=== PATIENT | male | born 1965 | race Caucasian/White ===

== ENCOUNTER 2019-08-05 07:11 | Emergency (ER) | payer OTHER, SELFPAY ==
[2019-08-05 07:12] VITALS: BP 148/90; PULSE 70; RESP 17; TEMP 37.1; O2SAT 97; BMI 51.8
--- NOTE | 2019-08-05 07:21 | CT_ITS ---
STUDY: CT ABDOMEN AND PELVIS WITHOUT CONTRAST REASON FOR EXAM: Male, 54 years old. Abdominal pain RADIATION DOSAGE (If Supplied By Facility): CTDIvol = ( 24.18 ) mGy, DLP = ( 1461.94 ) mGycm TECHNIQUE: Transaxial images were obtained from the dome of the diaphragm to the symphysis pubis without oral contrast, and without intravenous contrast. Sagittal and coronal images were reconstructed. Individualized dose optimization techniques were used for this CT. COMPARISON: None. FINDINGS: The visualized lung bases are unremarkable. The visualized portions of the heart are within normal limits. There is decreased attenuation of the liver consistent with steatosis. Normal gallbladder and extrahepatic biliary system. Normal spleen. Normal pancreas. Normal bilateral adrenal glands. 3 mm obstructing stone at the mid right ureter with mild ureteral dilatation and hydronephrosis. Normal left kidney. There is a small hiatal hernia. Normal small intestine. Normal colon. The appendix is visualized and appears normal. Normal abdominal aorta. Normal inferior vena cava. Normal retroperitoneum. Normal urinary bladder. Normal abdominal wall. Normal osseous structures. CT/Abdomen/Pelvis without Cont IMPRESSION: 1. 3 mm obstructing stone in the mid right ureter with mild ureteral dilatation and hydronephrosis. 2. Fatty infiltration of the liver. Electronically Signed: Carlos Dailey MD at 8:25 EDT Tel , Service support ,
--- NOTE | 2019-08-05 07:34 | ED.DCSUM_ITS ---
- ER Visit Summary Date of Service: 08/05/19 Chief Complaint: Right flank pain History of Present Illness: The patient is a [address] Jackman. Patient reports that he has abrupt onset of right flank pain at 4:00 this morning. Is a sharp pain that is 10 out of 10 at worst and 8-10 currently. Is worsened by nothing and relieved by nothing. He said nausea without vomiting. His last bowel movements today. No melena hematochezia. No dysuria, frequency, or hematuria. Physical Examination: Vitals: Stable. Afebrile. General: Well-nourished and well-developed. Head: Normocephalic atraumatic. Neck: Supple, no lymphadenopathy. No JVD. Nontender. Cardiovascular: Regular rate and rhythm. No murmurs. Respiratory: No respiratory distress. Clear to auscultation bilaterally. Abdominal: Soft, nontender, nondistended, normal bowel sounds. No guarding, rebound, or peritoneal signs. Back: Nontender. Extremities: 1+ pitting edema of the lower extremes bilaterally. Chronic venous stasis changes. No erythema, warmth, or induration to suggest infection. Skin: Normal color, no rash. Neurologic: Alert and oriented ?3. Cranial nerves II through XII are intact. Normal strength and sensation. Psych: Normal affect. Test Results: CBC is marked for white count of 14.6 with 81 segmented neutrophils and 9 lymphocytes. Chem-7 shows a glucose of 131. UA shows 25-50 red blood cells. No evidence of infection. Clinical Impression(s) from Imaging Studies Abdomen/Pelvis CT 08/05/19 07:21 IMPRESSION: 1. 3 mm obstructing stone in the mid right ureter with mild ureteral dilatation and hydronephrosis. 2. Fatty infiltration of the liver. Electronically Signed: Carlos Dailey MD at 8:25 EDT Tel , Service support , Emergency Department Course and Treatment: Patient had an IV placed. He was given Toradol, morphine, and Zofran IV. He is resting comfortably. Treatment Plan: Patient will be discharged with Percocet, Zofran, naproxen. Instructed follow-up Dr. Keita in 1 week if not improving. Return to the emergency department for any worsening symptoms. Disposition: To home in improved and stable condition. Impression: 1. Right ureterolithiasis. This note was generated with [employer] dictation software. It may contain incorrect words, spelling, and punctuation that were not noted in review of the chart prior to signing ED Disposition - Plan for ED Patient: Instructions: KIDNEY STONE w/ Colic Prescriptions: Naproxen [Naprosyn] 500 mg PO BID #14 tablet Oxycodone HCl/Acetaminophen [Percocet 5/325] 1 tablet PO Q6H PRN PRN 3 Days #12 tablet PRN Reason: Pain Ondansetron [Zofran Odt] 4 mg PO Q8H PRN PRN #10 tablet PRN Reason: Nausea Referrals: Sergio Keita MD [STAFF PHYSICIAN] - 1 Week if not improving
[2019-08-05] MEDS: Ondansetron 4 MG/2 ML Vial IV (07:43)
[2019-08-05] MEDS: 0.9% Normal Saline 1,000 ML 250 ML IV (07:43)
[2019-08-05] MEDS: Morphine 4 MG/ML Syringe IV (07:43)
[2019-08-05] MEDS: Ketorolac 30 MG/ML Syringe IV (07:43)
[2019-08-05 08:29] LABS: Absolute Lymphocyte Count 1.37 X10^3/uL (0.83-4.51); Absolute Neutrophil Count 11.9 X10^3/uL (2.0-7.7); Basophil# 0.07 X10^3/uL; Basophil% 0.5 % (0-1); Eosinophils% 1.4 % (0-5); Hematocrit 45.9 % (40-54); Hemoglobin 15.1 g/dL (13.0-16.5); Lymphocyte # 1.37 X10^3/ul (4.0); Lymphocyte % 9.4 % (19-41); Mean Corp Hgb Conc 32.9 g/dL (32-36); Mean Corpuscular Hgb 28.9 pg (27.0-32.0); Mean Corpuscular Volume 87.8 fL (80-94); Mean Platelet Vol. 10.2 fl (6.2-12.0); Monocyte# 1.02 X10^3/uL; NRBC Flagged by Analyzer 0 % (0-5); Neutrophil # 11.92 X10^3/uL (2.7-7.7); Neutrophil % 81.3 % (47-70); Platelet Count 232 K/mm3 (150-450); RBC Distribution Width CV 12.6 % (11.6-14.6); RBC Distribution Width SD 40.7 fl (35.1-43.9); Red Blood Count 5.23 M/mm3 (4.6-6.2); White Blood Count 14.6 K/mm3 (4.4-11.0)
[2019-08-05 08:38] LABS: Anion Gap 6 (5-15); BUN 17 mg/dL (7-18); BUN/Creat Ratio 15.6 RATIO (10-20); Calcium,Total 8.9 mg/dL (8.5-10.1); Chloride 106 mmol/L (98-107); Creatinine, Serum 1.09 mg/dL (0.70-1.30); EST Glomerular Filtration Rate 75 mL/min (>60); Est Glom Filt Rate - Afr Amer 91 mL/min (>60); Estimated Creatinine Clearance 85.04 ml/min; Glucose 131 mg/dL (74-106); Potassium 4.5 mmol/L (3.5-5.1); Sodium Level 140 mmol/L (136-145)
[2019-08-05 09:03] LABS: Bacteria 0 SEEN /hpf (None Seen); Mucous, Urine 0 SEEN /hpf (<or=2+); White Blood Cells 0 SEEN /hpf (0-5)
[2019-08-05 09:06] LABS: Color, Urine Yellow (Yellow); Glucose, Dipstick Normal (Normal); Ketone-Dipstick Negative (Negative); Leukocyte Esterase-Dipstick Negative /ul (Negative); Nitrite-Dipstick Negative (Negative); Occult Blood-Urine 150 /ul (Negative); Protein-Dipstick 15 mg/dl (Negative); Specific Gravity, Urine 1.025 (1.002-1.030); Urine Bilirubin Dipstick Negative (Negative); Urine Clarity Sl. Cloudy (Clear); Urine Urobilinogen Normal (Normal)
[2019-08-05 09:12] LABS: Red Blood Cells-Urine 25-50 SEEN /hpf (0-5); Squamous Epithelial Cells - UA 0-5 SEEN /hpf (0-5)
[2019-08-05 09:54] VITALS: BP 140/78; PULSE 82; RESP 18; O2SAT 98
== END 2019-08-05 10:11 | disposition home or self-care (01) ==
LOC: ED 08:10
PROVIDERS: Emergency Provider Emergency Medicine; Family Provider Student in an Organized Health Care Education/Training Program; PCP Student in an Organized Health Care Education/Training Program
DX: N13.2 Hydronephrosis with renal and ureteral calculous obstruction (principal); Z87.442 Personal history of urinary calculi
CPT/HCPCS: 74176; 80048; 81001; 85025; 96361; 96374; 96375; 99284; J7030; A4216; J2405

== ENCOUNTER 2020-04-07 20:57 | Emergency (ER) | payer OTHER, SELFPAY ==
[2020-04-07 20:57] VITALS: BP 157/91; PULSE 96; RESP 18; TEMP 36.2; O2SAT 97; BMI 56.6
--- NOTE | 2020-04-07 21:16 | ED.DCSUM_ITS ---
- ER Visit Summary Date of Service: 04/07/20 Chief Complaint: Nosebleed History of Present Illness: The patient is a 54 M history of depression and occasional nosebleeds. On no blood thinners. States he recently started a new job he is had sore knees he has been using Motrin. Denies any nasal trauma. Ab out an hour ago started having blood from both sides of his nose. He has had a prior nasal septal surgery. He denies any bruising, hematuria or melena. Physical Examination: Middle-aged male no acute distress vital signs stable afebrile initial blood pressure 137/91. HEENT exam mild bleeding from bilateral nares. No significant clots. Posterior pharynx mild blood. No trouble breathing or swallowing. Lungs clear to auscultation bilaterally. Heart regular rhythm no murmur. M soft nontender. He is moving all 4 extremities. He is equal symmetrical trace edema both lower extremities. Neurologically is awake and alert with no focal motor deficits. Test Results: None Emergency Department Course and Treatment: Patient with acute epistaxis. Afrin nasal spray soaked cotton balls be placed in both sides of his nose. Then reassess for possible packing. Jewel exam patient is doing well at 9:45 PM. Bleeding on the right is resolved. Left is very slow. I strongly encouraged the patient to let me place bilateral anterior nasal packs. He has home CPAP with nasal pillows and said there is no way he can do that. Said he cannot sleep without it he has to use it. Said it will not work with packing in. He does not have a oral CPAP mouthpiece at home. He does understand that there is a much higher risk of him to have continued bleeding or recurrent bleeding and that he would have to return and he is willing to take that risk. I did place Dawit-Synephrine soaked cotton balls in both sides of his nose prior to being discharged. Patient refusing any type of packing. Prior to being discharged she started bleeding again. Slowed it again down with soaked cotton balls of Afrin. I then cauterized both sides was again slowed but did not stop the bleeding. I was able to talk the patient into bilateral anterior nasal tampon packs. Currently the bleeding is well controlled. There is no blood from posterior pharynx. He is going to follow-up with Dr. Indra Rodriguez on Friday to have the packing was removed. He may need cauterization more formally in the office. He knows to return if worse. He is going to attempt to not use his CPAP device this weekend. Treatment Plan: Patient will follow-up with Dr. Indra Rodriguez of ENT. Turn if worse. Disposition: Discharge Impression: Acute epistaxis (nose bleed) Bilateral anterior nasal packs by ER This note was generated with [employer] dictation software. It may contain incorrect words, spelling, and punctuation that were not noted in review of the chart prior to signing ED Disposition - Plan for ED Patient: Disposition: Home or Assisted Living Instructions: Nosebleed Prescriptions: Amoxicillin 500 mg PO TID #9 tab Prescription Printed Referrals: Indra Rodriguez MD [STAFF PHYSICIAN] - As soon as possible Additional Instructions: Direct pressure to the soft portion at the end of your nose to help stop the bleeding. Afrin or Dawit-Synephrine nasal spray soaked cotton balls inside your nose to help decrease or stop the bleeding. During the day use antibiotic ointment to help moisten your nose in case the home CPAP is causing nasal dryness and increasing the risk of bleeding. Hold your Motrin the next day. Follow-up with Dr. Indra Rodriguez this coming week. Return if worse. Leave the packing in both sides your nose and follow-up with Dr. Miller on Friday. If you pull the packing and use your CPAP it is almost surely can start bleeding again at home. While the packing is you need to be on antibiotic I will put her on amoxicillin 3 times a day for 3 days.
[2020-04-07] MEDS: Oxymetazoline 0.05% 1 SPRAY SPRAY.BTL 2 SPRAY NASAL (21:26)
--- NOTE | 2020-04-07 21:52 | ED.DEP ---
ED Disposition - Plan for ED Patient: Disposition: Home or Assisted Living Instructions: Nosebleed Prescriptions: Amoxicillin 500 mg PO TID #9 tab Prescription Printed Referrals: Indra Rodriguez MD [STAFF PHYSICIAN] - As soon as possible Additional Instructions: Direct pressure to the soft portion at the end of your nose to help stop the bleeding. Afrin or Dawit-Synephrine nasal spray soaked cotton balls inside your nose to help decrease or stop the bleeding. During the day use antibiotic ointment to help moisten your nose in case the home CPAP is causing nasal dryness and increasing the risk of bleeding. Hold your Motrin the next day. Follow-up with Dr. Indra Rodriguez this coming week. Return if worse. Leave the packing in both sides your nose and follow-up with Dr. Miller on Friday. If you pull the packing and use your CPAP it is almost surely can start bleeding again at home. While the packing is you need to be on antibiotic I will put her on amoxicillin 3 times a day for 3 days.
[2020-04-07] MEDS: Silver Nitrate (BKC) 4 EACH TOPICAL (22:05)
== END 2020-04-07 22:35 | disposition home or self-care (01) ==
PROVIDERS: Emergency Provider Emergency Medicine; PCP Student in an Organized Health Care Education/Training Program
DX: R04.0 Epistaxis (principal)
CPT/HCPCS: 30901; 99282

== ENCOUNTER 2020-04-10 16:18 | Emergency (ER) | payer OTHER, SELFPAY ==
[2020-04-10 16:18] VITALS: BP 125/89; PULSE 103; RESP 18; TEMP 36.8; O2SAT 96; BMI 55.2
--- NOTE | 2020-04-10 16:30 | EKG12_ITS ---
Test Reason : SOB Blood Pressure : / mmHG Vent. Rate : 096 BPM Atrial Rate : 096 BPM P-R Int : 144 ms QRS Dur : 088 ms QT Int : 330 ms P-R-T Axes : 050 -12 022 degrees QTc Int : 416 ms Normal sinus rhythm Minimal voltage criteria for LVH, may be normal variant Borderline ECG Confirmed by BARBRA PATINO, TIM ([id number]), editor publications BISI ROMAN ([id number]) on 04/11/2020 11:19:41 AM Referred By: NISHA Confirmed By:TIM BELLE MD
--- NOTE | 2020-04-10 16:32 | ED.DCSUM_ITS ---
History of Present Illness Chief Complaint: Shortness of Breath Informant: Patient Onset: Today Context: Gradual Onset Timing: Waxes and wanes Current Severity: Mild Maximum Severity: Moderate Narrative: She presents with shortness of breath, worse with exertion that he noted significantly today. Patient was seen in the ER over the weekend with a nosebleed. Packings were placed Friday night he removed these himself on Friday. He has an appointment to see ENT on Friday. Patient states he went back to work today but became very winded with exertion. He denied having chest pain. He would sit to rest, however as soon as he would get to work again would become short of breath. He denies cough or wheezing. - Past Medical History (1) Obstructive sleep apnea Status: Chronic (2) History of DVT of lower extremity Status: Chronic Past Medical History - Allergies and Home Meds Allergies/Adverse Reactions: Allergies cephalexin [From Keflex] Allergy (Verified 04/10/20 16:18) Itching Primary Care Physician: Artur Jackman DO [Primary Care Provider] - Prior records reviewed: Yes Lives: Spouse/ Significant Other Smoking Status: Never smoker Review of Systems General: Denies: Chills, Fever Eyes: Denies: Visual changes - bilaterally ENT: Denies: Bilateral ear pain Cardiovascular: Denies: Chest pain Respiratory: Reports: Dyspnea. Denies: Cough, Sputum Gastrointestinal: Denies: Abdominal pain, Nausea, Vomiting, Diarrhea Musculoskeletal: Reports: Swelling - Chronic venous changes to the lower extremities. Skin: Denies: Rash Neurological: Denies: Headache Hematologic: Denies: Easy bruising, Easy bleeding Allergy: Denies: Uticaria Physical Exam Vital Signs/Narrative: Vital Signs Temp Pulse Resp BP Pulse Ox 04/10/20 16:18 98.3 F 103 H 18 125/89 H 96 Inital Vital Signs reviewed: Yes General: Well nourished, Well developed Head: Normocephalic ENT: Moist mucous membranes Neck: Supple Cardiovascular: Regular rate, Regular rhythm Respiratory: No distress, CTA bilaterally Abdomen: Soft, Nontender Extremities: Edema - 3+ edema with vascular changes to the lower extremities, symmetric. No open wounds. Neurological: Alert, Oriented x3 Psychological: Normal affect Diagnostic/Tx/Re-eval Impressions Chest X-Ray 04/10/20 16:50 IMPRESSION: No acute pulmonary process Electronically Signed: Sohail Kimble MD at 17:14 EDT , Service support , Chest CTA 04/10/20 17:46 IMPRESSION: No demonstrated PE, or thoracic aortic aneurysm or dissection. However, the contrast bolus within the pulmonary arteries is not optimal. No acute pulmonary process Degenerative bony changes Fatty liver Electronically Signed: Sohail Kimble MD at 18:34 EDT , Service support , 04/10/20 16:50 Chest PA and Lateral [RAD] Stat 04/10/20 17:46 CTA Chest W/WO Contrast [CT] Stat Laboratory Results 04/10/20 04/10/20 04/10/20 16:38 16:38 16:38 WBC 13.2 H RBC 4.83 Hgb 14.0 Hct 42.8 MCV 88.6 MCH 29.0 MCHC 32.7 RDW Std Deviation 41.3 RDW Coeff of Aura 12.8 Plt Count 256 MPV 10.3 Immature Gran % (Auto) 0.500 Neut % (Auto) 79.9 H Lymph % (Auto) 11.9 L [place] % (Auto) 6.6 Eos % (Auto) 0.6 Baso % (Auto) 0.5 Absolute Neuts (auto) 10.6 H Absolute Lymphs (auto) 1.58 Nucleated RBC % 0 D-Dimer Quant (PE/DVT) 0.78 H* Sodium 141 Potassium 4.7 Chloride 108 H Carbon Dioxide 27.0 Anion Gap 6 BUN 16 Creatinine 1.12 Estim Creat Clear Calc 82.76 Est GFR (MDRD) Af Amer 88 Est GFR (MDRD) Non-Af 72 BUN/Creatinine Ratio 14.3 Glucose 92 Calcium 9.7 Troponin I < 0.015 B-Natriuretic Peptide 04/10/20 16:38 WBC RBC Hgb Hct MCV MCH MCHC RDW Std Deviation RDW Coeff of Aura Plt Count MPV Immature Gran % (Auto) Neut % (Auto) Lymph % (Auto) [place] % (Auto) Eos % (Auto) Baso % (Auto) Absolute Neuts (auto) Absolute Lymphs (auto) Nucleated RBC % D-Dimer Quant (PE/DVT) Sodium Potassium Chloride Carbon Dioxide Anion Gap BUN Creatinine Estim Creat Clear Calc Est GFR (MDRD) Af Amer Est GFR (MDRD) Non-Af BUN/Creatinine Ratio Glucose Calcium Troponin I B-Natriuretic Peptide 14.9 - EKG Initial EKG Interpretation: Sinus Rhythm - Sinus at 96 with no acute ischemia. - Medical Decision Making Patient's vital signs been stable throughout his ED stay. Cardiac and pulmonary work-up are unremarkable. Patient will wear his compression socks and try to elevate his legs. He will follow with PCP. ED Disposition - Plan for ED Patient: Disposition: Home or Assisted Living Diagnosis: Dyspnea Instructions: ED Dyspnea Referrals: Artur Jackman DO [Primary Care Provider] - 3-5 Days if not improving
--- NOTE | 2020-04-10 16:36 | NURSING ---
NO OLD EKGS
--- NOTE | 2020-04-10 16:50 | RAD_ITS ---
STUDY: X-RAY CHEST REASON FOR EXAM: Male, 54 years old. Worsening shortness of breath TECHNIQUE: PA and lateral views of the chest. COMPARISON: None. FINDINGS: EKG leads overlie the chest The lungs are clear and expanded. There is no demonstrated pleural abnormality. Normal size heart. Normal mediastinum and brigette. Normal visualized pulmonary arteries. Normal visualized aortic arch and descending thoracic aorta. Normal visualized thoracic spine. Normal visualized ribs, clavicles, and shoulders. There is no demonstrated abnormality of the visualized soft tissue structures of the upper abdomen. RAD/Chest PA and Lateral IMPRESSION: No acute pulmonary process Electronically Signed: Sohail Kimble MD at 17:14 EDT , Service support ,
[2020-04-10 16:56] LABS: Absolute Lymphocyte Count 1.58 X10^3/uL (0.83-4.51); Absolute Neutrophil Count 10.6 X10^3/uL (2.0-7.7); Basophil# 0.06 X10^3/uL; Basophil% 0.5 % (0-1); Eosinophil# 0.08 X10^3/uL; Eosinophils% 0.6 % (0-5); Hematocrit 42.8 % (40-54); Lymphocyte # 1.58 X10^3/ul (4.0); Lymphocyte % 11.9 % (19-41); Mean Corp Hgb Conc 32.7 g/dL (32-36); Mean Corpuscular Volume 88.6 fL (80-94); Mean Platelet Vol. 10.3 fl (6.2-12.0); Monocyte# 0.87 X10^3/uL; Monocyte% 6.6 % (0-10); NRBC Flagged by Analyzer 0 % (0-5); Neutrophil # 10.59 X10^3/uL (2.7-7.7); Neutrophil % 79.9 % (47-70); Platelet Count 256 K/mm3 (150-450); RBC Distribution Width CV 12.8 % (11.6-14.6); RBC Distribution Width SD 41.3 fl (35.1-43.9); Red Blood Count 4.83 M/mm3 (4.6-6.2); White Blood Count 13.2 K/mm3 (4.4-11.0)
[2020-04-10 17:05] VITALS: O2SAT 98
[2020-04-10 17:10] LABS: D-Dimer Quantitative (DVT/PE) 0.78 FEU/ug/m (0.27-0.49)
[2020-04-10 17:33] LABS: Anion Gap 6 (5-15); BUN 16 mg/dL (7-18); BUN/Creat Ratio 14.3 RATIO (10-20); Calcium,Total 9.7 mg/dL (8.5-10.1); Chloride 108 mmol/L (98-107); Creatinine, Serum 1.12 mg/dL (0.70-1.30); EST Glomerular Filtration Rate 72 mL/min (>60); Est Glom Filt Rate - Afr Amer 88 mL/min (>60); Estimated Creatinine Clearance 82.76 ml/min; Glucose 92 mg/dL (74-106); Potassium 4.7 mmol/L (3.5-5.1); Sodium Level 141 mmol/L (136-145)
[2020-04-10 17:40] LABS: BNP,B-Type NATRIURETIC PEPTIDE 14.9 pg/mL (0-100)
--- NOTE | 2020-04-10 17:46 | CT_ITS ---
STUDY: CTA CHEST REASON FOR EXAM: Male, 54 years old. Acute shortness of breath RADIATION DOSAGE (If Supplied By Facility): CTDIvol = ( 17.33 ) mGy, DLP = ( 880.22 ) mGycm TECHNIQUE: The examination was performed with the intravenous administration of 100ML ISOVUE 370. Post-processing of the angiographic images was performed, with multiplanar reformation and 3D reconstruction. Individualized dose optimization techniques were used for this CT. COMPARISON: Previous plain films FINDINGS: There is limited enhancement of the main pulmonary artery and right and left pulmonary arteries. There is limited enhancement of the bilateral peripheral pulmonary arteries. There is no demonstrated pulmonary embolism, however, because the contrast bolus is not optimal, a subtle filling defect could be present and overlooked in the distal vessels.. Normal thoracic aorta and visualized great vessels. There is no demonstrated aortic dissection. Normal heart and pericardium. Normal mediastinum. Normal hilar regions. Normal visualized trachea and bronchi. The lungs are well expanded. Normal pulmonary parenchyma. Normal pleura. Normal chest wall structures. There are degenerative changes of thoracic spine. Limited cuts through the upper abdomen show fatty infiltration of the liver and a retrocardiac hiatal hernia CT/CTA Chest W/WO Contrast IMPRESSION: No demonstrated PE, or thoracic aortic aneurysm or dissection. However, the contrast bolus within the pulmonary arteries is not optimal. No acute pulmonary process Degenerative bony changes Fatty liver Electronically Signed: Sohail Kimble MD at 18:34 EDT , Service support ,
[2020-04-10 18:18] VITALS: BP 120/68; PULSE 78; RESP 15; O2SAT 99
[2020-04-10 19:24] VITALS: BP 135/83; PULSE 73; RESP 15; O2SAT 98
--- NOTE | 2020-04-10 19:24 | ED.RN ---
IV DC'ED, CATHETER INTACT, SMALL GAUZE DRESSING PLACED. DISCHARGE INSTRUCTIONS GIVEN TO AND REVIEWED WITH PATIENT, PATIENT DENIES QUESTIONS OR CONCERNS AND VOICES UNDERSTANDING OF DISCHARGE INSTRUCTIONS. PT AMBULATES OUT OF ROOM WITHOUT DIFFICULTY.
== END 2020-04-10 19:25 | disposition home or self-care (01) ==
PROVIDERS: Emergency Provider Emergency Medicine; PCP Student in an Organized Health Care Education/Training Program
DX: R06.00 Dyspnea, unspecified (principal); R60.0 Localized edema; G47.33 Obstructive sleep apnea (adult) (pediatric); Z86.718 Personal history of other venous thrombosis and embolism
CPT/HCPCS: 71046; 71275; 80048; 83880; 84484; 85025; 85379; 93005; 99284; Q9967; A4216

== ENCOUNTER 2021-11-10 21:51 | Observation (INO) | payer OTHER, SELFPAY ==
[2021-11-10 21:52] VITALS: BP 193/93; PULSE 87; RESP 18; TEMP 35.8; O2SAT 96; BMI 52.2
[2021-11-10 21:58] VITALS: O2SAT 96
--- NOTE | 2021-11-10 22:13 | EKG12_ITS ---
Test Reason : SOB Blood Pressure : / mmHG Vent. Rate : 086 BPM Atrial Rate : 086 BPM P-R Int : 140 ms QRS Dur : 086 ms QT Int : 338 ms P-R-T Axes : 037 -15 031 degrees QTc Int : 404 ms Normal sinus rhythm Normal ECG Confirmed by BARBRA PATINO, TIM ([id number]), advertising editor CHUCKIE BRAUN ([id number]) on 11/12/2021 10:55:42 AM Referred By: ADRIENNE Confirmed By:TIM BELLE MD
--- NOTE | 2021-11-10 22:13 | RAD_ITS ---
STUDY: X-RAY CHEST REASON FOR EXAM: Male, 56 years old. sob TECHNIQUE: Single frontal view of the chest. COMPARISON: CT chest 04/10/2020 and chest x-ray same day FINDINGS: Mild bilateral perihilar interstitial infiltrates. There is no demonstrated pleural abnormality. Normal size heart. Normal mediastinum and brigette. Normal visualized pulmonary arteries. Normal visualized aortic arch and descending thoracic aorta. Normal visualized thoracic spine. Normal visualized ribs, clavicles, and shoulders. There is no demonstrated abnormality of the visualized soft tissue structures of the upper abdomen. RAD/Chest 1 View (Portable) IMPRESSION: Mild bilateral perihilar infiltrates Electronically Signed: Indra Corona MD at 22:58 EST , Service support ,
[2021-11-10 22:34] LABS: Absolute Lymphocyte Count 2.11 X10^3/uL (0.83-4.51); Absolute Neutrophil Count 8.5 X10^3/uL (2.0-7.7); Basophil# 0.05 X10^3/uL; Basophil% 0.4 % (0-1); Eosinophil# 0.28 X10^3/uL; Eosinophils% 2.3 % (0-5); Hematocrit 43.2 % (40-54); Hemoglobin 14.4 g/dL (13.0-16.5); Lymphocyte # 2.11 X10^3/ul (0.83-4.51); Lymphocyte % 17.5 % (19-41); Mean Corp Hgb Conc 33.3 g/dL (32-36); Mean Corpuscular Hgb 28.7 pg (27.0-32.0); Mean Corpuscular Volume 86.2 fL (80-94); Mean Platelet Vol. 10.2 fl (6.2-12.0); Monocyte# 0.91 X10^3/uL; Monocyte% 7.6 % (0-10); NRBC Flagged by Analyzer 0 % (0-5); Neutrophil # 8.53 X10^3/uL (2.7-7.7); Platelet Count 231 K/mm3 (150-450); RBC Distribution Width CV 12.7 % (11.6-14.6); RBC Distribution Width SD 39.2 fl (35.1-43.9); Red Blood Count 5.01 M/mm3 (4.6-6.2)
--- NOTE | 2021-11-10 22:37 | ED.VIS.DYS ---
HPI History of Present Illness Chief Complaint: Shortness of Breath Informant: patient Narrative Narrative: Patient is a 56-year-old male presenting with shortness of breath and chest discomfort. Patient started having COVID symptoms on October 17 and had a positive test on October 29. He has been on a 10-day course of prednisone which she finished 2 days ago. He notes that since he finished that he has not been feeling as good. He has had shortness of breath especially when walking on his house. Today started having burning in the center of his chest. Denies any radiation of the pain. It is worse when he takes a deep breath. He has had a dry cough that is intermittently productive of sputum. He notes his lung just feel very irritated. He also had an episode of epistaxis tonight that self resolved. He notes he has been blowing his nose a lot. He is not on any oral anticoagulants. He does have a history of DVT in his leg after knee surgery. Patient has been using albuterol at home which does help with his cough especially. He also filled a prescription that he had for doxycycline today just in case. Patient checked his pulse ox at home which was in the 80s and his family recommend he come to the emergency room to be evaluated further. [facility] Medical History (Updated 11/11/21 @ 03:[address] Rukhsana Ochoa, ) Anxiety and depression Diabetes mellitus, type 2 History of DVT of lower extremity Morbid obesity Obstructive sleep apnea Home Medications albuterol sulfate INHALATION 11/11/21 [History Last Taken Unknown] doxycycline hyclate 11/11/21 [History Last Taken Unknown] dulaglutide [Trulicity] mg SUBCUT 11/11/21 [History Last Taken Unknown] Allergy/AdvReac Type Severity Reaction Status Date / Time cephalexin [From Keflex] Allergy Itching Verified 11/10/21 21:51 Family History Father Cancer Hx Lymphoma. Mother Diabetes Surgical History S/P arthroscopic surgery of right knee S/P tonsillectomy and adenoidectomy Social History household members: spouse Smoking Status: Never smoker alcohol intake: current alcohol intake frequency: a few times a month substance use type: does not use ROS ROS ED Constitutional Constitutional ED: Denies chills or fever(s) Eyes Eyes: Denies change in vision ENT ENT ED: Reports rhinorrhea and other Details: epistaxis Cardiovascular Cardiovascular: Reports chest pain; Denies palpitations Respiratory/Chest Respiratory/Chest: Reports cough, dyspnea, dyspnea on exertion and sputum Gastrointestinal Gastrointestinal: Denies abdominal pain, diarrhea or vomiting Genitourinary Genitourinary ED: Denies dysuria or hematuria Musculoskeletal Musculoskeletal: Denies arthralgias or myalgias Integumentary Denies rash Neurologic Neurologic: Denies headache(s) or weakness Psychiatric Psychiatric: Denies anxiety or depression EXAM Physical Exam Const Vital Signs: 11/10/21 21:52 11/10/21 22:45 11/11/21 00:00 Temperature 96.5 F L 97.5 F L Temperature Source Temporal Temporal Pulse Rate 87 Respiratory Rate 18 Respiratory Effort Short of Breath Blood Pressure 193/93 H Blood Pressure Mean 126 Pulse Ox 96 Oxygen Delivery Method Room Air Room Air Positive well nourished, well developed and obese General Appearance ED: well developed Nutritional Appearance: obese HEENT Reports moist mucous membranes Negative for trauma Eyes PERRL and EOMs intact bilaterally Neck supple, no meningeal signs and no JVD Resp normal respiratory effort Resp Narrative: Diminished breath sounds at the bases. Cardio regular rate, regular rhythm and no murmurs GI non-tender and non-distended Auscultation: normoactive bowel sounds Palpation: soft Extremity normal to inspection General Extremety ED: Negative for edema or tenderness General Extremity: Negative for edema Neuro oriented x3 Sensorium / Orientation: alert Motor Exam: Negative for general weakness Psych mental status grossly normal Skin Lesions: no lesions Rashes: no rashes MDM MDM MDM Narrative Medical decision making narrative: Patient's evaluate for increased shortness of breath. He recently had COVID-19 infection. Does have a history of provoked DVT. Patient is not hypoxic but he is tachypneic with limited activity. Initially patient is quite hypertensive but this improved significantly without any intervention. EKG is normal. D-dimer is significantly elevated so CTA is ordered. Patient is found to have bilateral PEs. There is no sign of heart strain. His troponin is normal. I did add on a BNP as well. Patient does have a mild leukocytosis but this might be from his recent steroid use. CT of the chest shows infiltrate versus pneumonitis. I did add on a procalcitonin to better differentiate and guide antibiotic treatment if needed. Patient be admitted given his bilateral PEs and his symptomatic tachypnea. He is agreeable with this plan. Spoke with the hospitalist who recommend starting the patient on oral Eliquis. First dose is given in the emergency room. Lab Data Labs: Laboratory Results - last 24 hr 11/10/21 11/10/21 11/10/21 22:20 22:20 22:20 WBC 12.0 H RBC 5.01 Hgb 14.4 Hct 43.2 MCV 86.2 MCH 28.7 MCHC 33.3 RDW Std Deviation 39.2 RDW Coeff of Aura 12.7 Plt Count 231 MPV 10.2 Immature Gran % (Auto) 1.200 H Neut % (Auto) 71.0 H Lymph % (Auto) 17.5 L [place] % (Auto) 7.6 Eos % (Auto) 2.3 Baso % (Auto) 0.4 Absolute Neuts (auto) 8.5 H Absolute Lymphs (auto) 2.11 Nucleated RBC % 0 D-Dimer Quant (PE/DVT) 3.46 H* Sodium 134 L Potassium 4.5 Chloride 101 Carbon Dioxide 29.0 Anion Gap 4 L BUN 18 Creatinine 1.03 Estim Creat Clear Calc 87.90 Est GFR (MDRD) Af Amer 96 Est GFR (MDRD) Non-Af 79 BUN/Creatinine Ratio 17.5 Glucose 346 H Calcium 9.3 Ferritin Total Bilirubin Direct Bilirubin AST ALT Alkaline Phosphatase Lactate Dehydrogenase Troponin I High Sens 7 C-React Prot Ext Range B-Natriuretic Peptide Total Protein Albumin Globulin Procalcitonin 11/11/21 11/11/21 11/11/21 00:00 00:00 00:00 WBC RBC Hgb Hct MCV MCH MCHC RDW Std Deviation RDW Coeff of Aura Plt Count MPV Immature Gran % (Auto) Neut % (Auto) Lymph % (Auto) [place] % (Auto) Eos % (Auto) Baso % (Auto) Absolute Neuts (auto) Absolute Lymphs (auto) Nucleated RBC % D-Dimer Quant (PE/DVT) Sodium Potassium Chloride Carbon Dioxide Anion Gap BUN Creatinine Estim Creat Clear Calc Est GFR (MDRD) Af Amer Est GFR (MDRD) Non-Af BUN/Creatinine Ratio Glucose Calcium Ferritin 450 H Total Bilirubin 0.50 Direct Bilirubin 0.17 AST 57 H ALT 134 H Alkaline Phosphatase 76 Lactate Dehydrogenase 305 H Troponin I High Sens C-React Prot Ext Range 28.80 H B-Natriuretic Peptide 4.5 Total Protein 7.0 Albumin 3.0 L Globulin 4.0 Procalcitonin 0.09 Radiography Chest X-Ray - ED: 1 View, Read by ED Physician, Read by Radiologist, Right Infiltrate and Left Infiltrate Diagnostic Testing: Clinical Impression(s) from Imaging Studies Chest X-Ray 11/10/21 22:13 IMPRESSION: Mild bilateral perihilar infiltrates Electronically Signed: Indra Corona MD at 22:58 EST , Service support , Chest CTA 11/10/21 22:55 IMPRESSION: Bilateral pulmonary emboli. No evidence of right ventricular strain. Right greater than left interstitial infiltrates. These are indeterminate for a covid 19 19. Electronically Signed: Indra Corona MD at 0:02 EST , Service support , Rhythm Strip Rhythm Strip: Sinus Rhythm Rate: 86 Ectopy: None EKG Initial EKG: Attestation: I personally reviewed and interpreted this EKG as follows: Interpretation: Sinus Rhythm Comments: Normal sinus rhythm at a rate of 86 Normal axis Normal intervals Normal ST segments No change prior to prior EKG on 04/10/2020 Discharge Plan Triage Chief Complaint: Shortness of Breath ED Provider: Rukhsana Ochoa Dx/Rx/DC Orders Clinical Impression: Bilateral pulmonary embolism, Pneumonia due to COVID-19 virus Primary Care Provider: Artur Jackman Disposition Disposition: Acute Care Hospital [facility] Discharge Date/Time: 11/11/21 01:21
[2021-11-10 22:45] VITALS: O2SAT 97
[2021-11-10 22:54] LABS: D-Dimer Quantitative (DVT/PE) 3.46 FEU/ug/m (0.27-0.49)
--- NOTE | 2021-11-10 22:55 | CT_ITS ---
We are attempting to reach an attending provider to discuss findings. An addendum with communication details will be sent when the communication is complete. STUDY: CTA CHEST REASON FOR EXAM: Male, 56 years old. sob, elevated dimer RADIATION DOSAGE (If Supplied By Facility): CTDIvol = ( 23.26 ) mGy, DLP = ( 1328.04 ) mGycm TECHNIQUE: The examination was performed with the intravenous administration of IV 100mL Isovue-370. Post-processing of the angiographic images was performed, with multiplanar reformation and 3D reconstruction. Individualized dose optimization techniques were used for this CT. COMPARISON: None. FINDINGS: Normal enhancement of the main pulmonary artery and right and left pulmonary arteries. Multiple occlusive and nonocclusive filling defects noted within the lobar and segmental branches bilaterally. No evidence of right ventricular strain. Normal thoracic aorta and visualized great vessels. There is no demonstrated aortic dissection. Normal heart and pericardium. Normal mediastinum. Normal hilar regions. Normal visualized trachea and bronchi. Bilateral peripheral interstitial infiltrates. Normal pulmonary parenchyma. Normal pleura. Normal chest wall structures. Gynecomastia. Normal osseous structures. Small hiatal hernia. CT/CTA Chest W/WO Contrast IMPRESSION: Bilateral pulmonary emboli. No evidence of right ventricular strain. Right greater than left interstitial infiltrates. These are indeterminate for a covid 19 19. Electronically Signed: Indra Corona MD at 0:02 EST , Service support ,
[2021-11-10 22:59] LABS: Anion Gap 4 (5-15); BUN 18 mg/dL (7-18); BUN/Creat Ratio 17.5 RATIO (10-20); Calcium,Total 9.3 mg/dL (8.5-10.1); Chloride 101 mmol/L (98-107); Creatinine, Serum 1.03 mg/dL (0.70-1.30); EST Glomerular Filtration Rate 79 mL/min (>60); Est Glom Filt Rate - Afr Amer 96 mL/min (>60); Glucose 346 mg/dL (74-106); Potassium 4.5 mmol/L (3.5-5.1); Sodium Level 134 mmol/L (136-145); Troponin-I HS 7 pg/mL (3.0-78.0)
[2021-11-11] VITALS (11 sets, daily range): BP systolic 127–178; BP diastolic 68–96; PULSE 77–95; RESP 16–18; TEMP 36.1–36.9; O2SAT 90–97; BMI 55.2
--- NOTE | 2021-11-11 00:25 | HP.PCM.HOS_ITS ---
HPI - General General Date of Admission: 11/11/21 Date of Service: 11/11/21 Chief Complaint: Dyspnea, chest discomfort. HPI Narrative The patient is a 56 y/o M w/ PMHx: Hx kidney stones, Morbid obesity, Diabetes mellitus type II, MAYO, Anxiety, Hx prior DVT, history of onset COVID symptoms 10/17/2021 with eventual testing with COVID + 10/29/21 with onset of worsening dyspnea since completion of his outpatient steroid regimen this past , reporting home desaturations into the mid-80s with incrased activity. Patient noted also concurrent midsternal chest burning sensation with worsened dyspnea with exertion, pleuritic chest discomfort. Patient does report significant ongoing rhinorrhea and has been been blowing his nose frequently with epistaxis this evening which is resolved on its own. And is unvaccinated against COVID. Work-up in the ED included T96.5, heart rate 87, BP 193/93, respiratory rate 18, 96% on room air, CBC with WC 12, hemoglobin 14.4, platelet 231 with left shift, D-dimer 3.46, BMP with sodium 134, glucose 346 otherwise not marked appearing, high-sensitivity troponin 7.0, chest x-ray with bilateral pulmonary infiltrates consistent with COVID-pneumonia, CTPA bilateral pulmonary emboli with no eviden ce of right ventricular strain with right greater than left interstitial infiltrates consistent with COVID-19 pneumonia, EKG with sinus rhythm with no acute evidence of ischemia. [facility] Medical History (Updated 11/11/21 @ 00:[address] Olga Ibanez MD) Anxiety and depression Diabetes mellitus, type 2 History of DVT of lower extremity Morbid obesity Obstructive sleep apnea Home Medications albuterol sulfate INHALATION 11/11/21 [History Last Taken Unknown] doxycycline hyclate 11/11/21 [History Last Taken Unknown] dulaglutide [Trulicity] mg SUBCUT 11/11/21 [History Last Taken Unknown] Allergy/AdvReac Type Severity Reaction Status Date / Time cephalexin [From Keflex] Allergy Itching Verified 11/10/21 21:51 Family History (Updated 11/11/21 @ 00:[address] Olga Ibanez MD) Father Cancer Hx Lymphoma. Mother Diabetes Surgical History (Updated 11/11/21 @ 00:[address] Olga Ibanez MD) S/P arthroscopic surgery of right knee S/P tonsillectomy and adenoidectomy Social History (Updated 11/11/21 @ 00:[address] Olga Ibanez MD) household members: spouse Smoking Status: Never smoker alcohol intake: current alcohol intake frequency: a few times a month substance use type: does not use ROS ROS Narrative Admission Review of Systems: CONSTITUTIONAL: No weight loss, fever, chills, +weakness or fatigue. HEENT: + Ongoing congestion, rhinorrhea, episode of epistaxis. Eyes: No visual loss, blurred vision, double vision or yellow sclerae. Ears, Nose, Throat: No hearing loss, sneezing. SKIN: No rash or itching, lesions, wounds. CARDIOVASCULAR: + Midsternal chest burning and pleuritic pain, No palpitations, edema, orthopnea, syncopal events. RESPIRATORY: + shortness of breath, cough, pleuritic chest discomfort, No marked sputum, wheezing, hemoptysis. GASTROINTESTINAL: No anorexia, nausea, vomiting, diarrhea, abdominal pain, melena, BRBPR. GENITOURINARY: No dysuria, frequency, urgency or retention. NEUROLOGICAL: No headache, dizziness, syncope, paralysis, ataxia, numbness or tingling in the extremities, focal weakness, change in bowel or bladder control, seizure. MUSCULOSKELETAL: + muscle, back pain, joint pain or stiffness. HEMATOLOGIC: No anemia, bleeding or bruising. LYMPHATICS: No enlarged nodes. No history of splenectomy. PSYCHIATRIC: + history of depression or anxiety. ENDOCRINOLOGIC: No reports of sweating, cold or heat intolerance. No polyuria or polydipsia. ALLERGIES: No history of asthma, hives, eczema or rhinitis. Vital Signs Vital Signs Vital Signs: 11/10/21 21:52 11/10/21 22:45 11/11/21 00:00 Temperature 96.5 F L 97.5 F L Temperature Source Temporal Temporal Pulse Rate 87 Respiratory Rate 18 Respiratory Effort Short of Breath Blood Pressure 193/93 H Blood Pressure Mean 126 Pulse Ox 96 Oxygen Delivery Method Room Air Room Air Weight Weight: 385 lb Body Mass Index (BMI) 52.2 Physical Exam Narrative Physical Examination: General: Awake, alert, oriented x 3 and cooperative, seated upright in the ED bed, fatigued, no evidence of any respiratory distress. Skin: Normal color, normal turgor, no icterus, no cyanosis. HEENT: AT/NC, EOMI, PERRLA, mildly dry MM, no carotid bruits or JVD noted; however, thickened neck makes examination difficult. Lungs: Diffusely diminished, greater bases, increased respiratory rate, no rales, ronchi or wheezing. Heart: Regular rate with regular rhythm; no gallop, rub audible. Abdomen: Soft, morbidly obese, no obvious TTP, unable to discern distention given habitus, distant hyperactive bowel sounds, unable to discern HSM secondary to habitus. Extremities: No cyanosis, clubbing, or edema. Neurological: Patient awake, alert, oriented as noted, cognitive function intact; pupils equally reactive to light and accommodation, cranial nerves II- XII grossly normal, moving all 4 extremities, no focal deficits, strength moderately global decrease secondary to acute presentation. Psychiatric: Affect appears fatigued, no acute evidence of depressive or anxiety feelings. Results Lab / Micro Data Result Diagrams: 11/10/21 22:20 11/10/21 22:20 Labs: Laboratory Results - last 24 hr 11/10/21 22:20: WBC 12.0 H, RBC 5.01, Hgb 14.4, Hct 43.2, MCV 86.2, MCH 28.7, MCHC 33.3, RDW Std Deviation 39.2, RDW Coeff of Aura 12.7, Plt Count 231, MPV 10.2, Immature Gran % (Auto) 1.200 H, Neut % (Auto) 71.0 H, Lymph % (Auto) 17.5 L, [place] % (Auto) 7.6, Eos % (Auto) 2.3, Baso % (Auto) 0.4, Absolute Neuts (auto) 8.5 H, Absolute Lymphs (auto) 2.11, Nucleated RBC % 0 11/10/21 22:20: D-Dimer Quant (PE/DVT) 3.46 H* 11/10/21 22:20: Sodium 134 L, Potassium 4.5, Chloride 101, Carbon Dioxide 29.0, Anion Gap 4 L, BUN 18, Creatinine 1.03, Estim Creat Clear Calc 87.90, Est GFR (MDRD) Af Amer 96, Est GFR (MDRD) Non-Af 79, BUN/Creatinine Ratio 17.5, Glucose 346 H, Calcium 9.3, Troponin I High Sens 7 Rhythm Strip Rhythm Strip: Sinus Rhythm Rate: 86 Ectopy: None Radiology Impression Chest X-Ray 11/10/21 22:13 IMPRESSION: Mild bilateral perihilar infiltrates Electronically Signed: Indra Corona MD at 22:58 EST , Service support , Chest CTA 11/10/21 22:55 IMPRESSION: Bilateral pulmonary emboli. No evidence of right ventricular strain. Right greater than left interstitial infiltrates. These are indeterminate for a covid 19 19. Electronically Signed: Indra Corona MD at 0:02 EST , Service support , Assessment & Plan Assessment/Plan (1) Bilateral pulmonary embolism: (2) Pneumonia due to COVID-19 virus: PLAN: The patient is a 56 y/o M w/ PMHx: Hx kidney stones, Morbid obesity, Diabetes mellitus type II, MAYO, Anxiety, Hx prior DVT, history of onset COVID symptoms 10/17/2021 with eventual testing with COVID + 10/29/21 with onset of worsening dyspnea since completion of his outpatient steroid regimen this past , reporting home desaturations into the mid-80s with increased activity and pleuritic chest discomfort. #1. Acute Bilateral Pneumonia secondary to Acute Viral Syndrome, COVID-19 with worsening dyspnea secondary to #2: Will admit to the PCU, maintain on COVID precautions, will maintain on oxygen with wean as tolerated to room air, PRN albuterol, HOB, IS parameters w/ pending sputum cultures and urine antigens, will obtain procalcitonin, CRP, CPK, Ferritin, LDH and BNP, continue supportive care including q 2 hour turning including prone given no prone bed availability and judicious hydration, closely monitor for worsening status for ARDS and multiorgan failure. Will need ambulation trial prior to discharge. #2. Acute Bilateral Pulmonary Embolism secondary to #1: Will maintain on cardiac telemetry. Will obtain BNP, presume from LE DVT, no evidence of strain on CTPA and trop normal x 1. Will initiate on eliquis with pending AM CM/SW consultation to review cost. Will need ambulation trial prior to discharge. #3. Hyperglycemia w/ Presumed Diabetes mellitus type II with hyperglycemia: Patient denies prior diabetic history, noted to have been on Trulicity prior which he notes was potentially for weight loss, notable blood sugar elevation likely secondary to recent steroid usage, hemoglobin A1c pending, until A1c returned we will maintain on ADA diet, accu checks w/ ISS. If A1c is notable and consistent with diabetes recommend consultation with neurology for education and teaching. #4. Morbid Obesity: Weight loss and lifestyle changes encouraged. #5. MAYO: We will continue CPAP nightly. #6. Anxiety and Depression: Not currently on any regimen, from prior records had been on bupropion and citalopram. #7. History of prior DVT: Patient with prior history of DVT following surgery on his knee, this would be considered provoked however given #2 patient is being resumed on anticoagulant therapy. #8. DVT prophylaxis: SCDs, continue anticoagulant therapy. We will need to closely monitor patient as there is documented history and previous records of epistaxis prior and this off anticoagulant therapy given new start it could be exacerbated. Charges/Coding Visit Charges OBSV E&M: 75574 Initial observation care L3
[2021-11-11 00:45] LABS: BNP,B-Type NATRIURETIC PEPTIDE 4.5 pg/mL (0-100)
[2021-11-11 00:53] LABS: Procalcitonin 0.09 ng/mL (0.00-0.09)
[2021-11-11 01:18] LABS: AST(SGOT) 57 U/L (15-37); Alanine Aminotransfer ALT/SGPT 134 U/L (16-61); Alkaline Phosphatase 76 U/L (45-117); Bilirubin, Direct 0.17 mg/dL (0.00-0.30); Ferritin 450 ng/mL (26-388); LDH 305 U/L (87-241)
[2021-11-11] MEDS: APIXABAN 5 MG TABLET 10 MG PO ×2 (01:20→09:31)
--- NOTE | 2021-11-11 01:32 | PCS.PANDOC ---
PANDEMIC DOCUMENTATION INITIATED: Date: 06/11/2021 Time: 190
[2021-11-11 06:50] LABS: Bedside Glucose 141 mg/dL (70-110)
[2021-11-11 06:55] LABS: Absolute Lymphocyte Count 1.93 X10^3/uL (0.83-4.51); Absolute Neutrophil Count 8.9 X10^3/uL (2.0-7.7); Basophil# 0.04 X10^3/uL; Basophil% 0.3 % (0-1); Eosinophils% 2.5 % (0-5); Hematocrit 42.7 % (40-54); Hemoglobin 14.1 g/dL (13.0-16.5); Lymphocyte # 1.93 X10^3/ul (0.83-4.51); Mean Corpuscular Hgb 28.5 pg (27.0-32.0); Mean Corpuscular Volume 86.3 fL (80-94); Mean Platelet Vol. 10.2 fl (6.2-12.0); Monocyte# 0.78 X10^3/uL; Monocyte% 6.4 % (0-10); NRBC Flagged by Analyzer 0 % (0-5); Neutrophil # 8.89 X10^3/uL (2.7-7.7); Neutrophil % 73.5 % (47-70); Platelet Count 221 K/mm3 (150-450); RBC Distribution Width CV 12.9 % (11.6-14.6); RBC Distribution Width SD 39.5 fl (35.1-43.9); Red Blood Count 4.95 M/mm3 (4.6-6.2); White Blood Count 12.1 K/mm3 (4.4-11.0)
[2021-11-11 08:09] LABS: ALB/GLOB Ratio 0.7 RATIO (0.9-2.4); AST(SGOT) 41 U/L (15-37); Alanine Aminotransfer ALT/SGPT 122 U/L (16-61); Albumin, Serum 2.9 g/dL (3.2-5.0); Alkaline Phosphatase 74 U/L (45-117); Anion Gap 6 (5-15); BUN 14 mg/dL (7-18); BUN/Creat Ratio 15.4 RATIO (10-20); Chloride 99 mmol/L (98-107); Creatinine, Serum 0.91 mg/dL (0.70-1.30); EST Glomerular Filtration Rate 92 mL/min (>60); Est Glom Filt Rate - Afr Amer 111 mL/min (>60); Estimated Creatinine Clearance 99.49 ml/min; Globulin 3.9 g/dL (2.2-4.2); Glucose 144 mg/dL (74-106); Potassium 4.1 mmol/L (3.5-5.1); Protein, Total 6.8 g/dL (6.4-8.2); Sodium Level 136 mmol/L (136-145)
[2021-11-11 08:50] LABS: Hemoglobin A1c 7.6 % (3.8-5.6)
[2021-11-11] MEDS: Insulin Lispro 100 UNIT/ML INSULN.PEN SC (11:20)
[2021-11-11 11:36] LABS: Bedside Glucose 179 mg/dL (70-110)
--- NOTE | 2021-11-11 13:16 | DS.PCM_ITS ---
Providers Date of Admission: 11/11/21 Primary Care Physician: Dr. Artur Jackman, DO Reason For Visit: ACUTE BL PE, COVID PNA Diagnosis Discharge Diagnosis (1) Bilateral pulmonary embolism: Status: Acute Code(s): I26.99 - Other pulmonary embolism without acute cor pulmonale (2) Pneumonia due to COVID-19 virus: Status: Acute Code(s): U07.1 - COVID-19; J12.82 - Pneumonia due to coronavirus disease 2018 Medications at Discharge Home Medications Trulicity mg SUBCUT 11/11/21 albuterol sulfate INHALATION 11/11/21 apixaban [Eliquis DVT-PE Treat 30D Start] 5 mg PO BID #74 tab 11/11/21 doxycycline hyclate 11/11/21 Hospital Course Operations None Procedures None Summary of Care Provided Minutes Spent on Discharge: 40 Hospital Course: Patient is a 56-year-old male with a past medical history as outlined including an onset of COVID symptoms on 10/17/2021 with a COVID test which was positive on 10/29/2021. He was admitted through the ED on 11/11/2021 with a complaint of worsening shortness of breath. He had completed his course of dexamethasone about 2 to 3 days prior to admission but said he was desaturating at home into the mid 80s with increased activity. He also had burning chest sensation with worsening shortness of breath and exertion. Patient was not vaccinated against COVID. On admission, chest x-ray showed bilateral pulmonary infiltrates consistent with COVID. D-dimer was 3.46 and CTA showed bilateral pulmonary emboli with no evidence of right ventricular strain and right greater than left interstitial infiltrates consistent with COVID-19 pneumonia. He was admitted and managed for bilateral PE due to COVID. Patient remained on room air and shortness of breath and chest pain resolved. He was started on Eliquis. He remained stable and was discharged home on 11/11/2021 on a treatment course of Eliquis. Patient states that he had a previous history of DVT and is lower extremity which was as a result of knee replacement. Given that this is a second thromboembolic phenomenon, both appear to be provoked with the initial one being by a knee replacement and the second 1 being by COVID. Patient counseled that he will need follow-up with his primary care doctor for decision to be made about whether he would need long-term anticoagulation or not. Patient seen and examined prior to discharge. He had no active complaints and had an uneventful night. He was on room air and felt well. Review of systems otherwise negative. Labs and vitals reviewed. Home medication reviewed and reconciled. Physical Exam Const alert, oriented x3 and no apparent distress General Appearance: cooperative, comfortable and well kempt Orientation / Consciousness: awake, oriented to person, oriented to place and oriented to time Exam Limitations: no limitations HEENT normocephalic, head/scalp atraumatic, hearing grossly normal bilaterally, moist oral mucous membranes and oropharynx normal Eyes PERRL, EOMs intact bilaterally and conjunctivae normal Neck no lymphadenopathy Resp Resp Narrative: mildly diminished breth sounds bibasally, no whezes or crackles. Cardio regular rate, regular rhythm, S1 normal heart sound, S2 normal heart sound and no murmurs GI normal to inspection, nondistended, normoactive bowel sounds, soft to palpation, non-tender and non-distended Extremity normal to inspection, full ROM and no clubbing, cyanosis or edema Skin no rashes or lesions noted Neuro oriented x3, CN's II-XII intact bilaterally and moves all extremities Sensorium / Orientation: awake and alert Psych affect normal Weight / BMI Weight Weight: 407 lb 3.1 oz Body Mass Index (BMI) 55.2 ABG / Lab / Microbiology Data Result Diagrams: 11/11/21 06:17 11/11/21 06:17 Laboratory: Laboratory Results - last 24 hr 11/10/21 22:20: WBC 12.0 H, RBC 5.01, Hgb 14.4, Hct 43.2, MCV 86.2, MCH 28.7, MCHC 33.3, RDW Std Deviation 39.2, RDW Coeff of Aura 12.7, Plt Count 231, MPV 10.2, Immature Gran % (Auto) 1.200 H, Neut % (Auto) 71.0 H, Lymph % (Auto) 17.5 L, [place] % (Auto) 7.6, Eos % (Auto) 2.3, Baso % (Auto) 0.4, Absolute Neuts (auto) 8.5 H, Absolute Lymphs (auto) 2.11, Nucleated RBC % 0 11/10/21 22:20: D-Dimer Quant (PE/DVT) 3.46 H* 11/10/21 22:20: Sodium 134 L, Potassium 4.5, Chloride 101, Carbon Dioxide 29.0, Anion Gap 4 L, BUN 18, Creatinine 1.03, Estim Creat Clear Calc 87.90, Est GFR (MDRD) Af Amer 96, Est GFR (MDRD) Non-Af 79, BUN/Creatinine Ratio 17.5, Glucose 346 H, Calcium 9.3, Troponin I High Sens 7 11/11/21 00:00: B-Natriuretic Peptide 4.5 11/11/21 00:00: Procalcitonin 0.09 11/11/21 00:00: Ferritin 450 H, Total Bilirubin 0.50, Direct Bilirubin 0.17, AST 57 H, ALT 134 H, Alkaline Phosphatase 76, Lactate Dehydrogenase 305 H, C-React Prot Ext Range 28.80 H, Total Protein 7.0, Albumin 3.0 L, Globulin 4.0 11/11/21 06:17: WBC 12.1 H, RBC 4.95, Hgb 14.1, Hct 42.7, MCV 86.3, MCH 28.5, MCHC 33.0, RDW Std Deviation 39.5, RDW Coeff of Aura 12.9, Plt Count 221, MPV 10.2, Immature Gran % (Auto) 1.300 H, Neut % (Auto) 73.5 H, Lymph % (Auto) 16.0 L, [place] % (Auto) 6.4, Eos % (Auto) 2.5, Baso % (Auto) 0.3, Absolute Neuts (auto) 8.9 H, Absolute Lymphs (auto) 1.93, Nucleated RBC % 0 11/11/21 06:17: Sodium 136, Potassium 4.1, Chloride 99, Carbon Dioxide 31.0, Anion Gap 6, BUN 14, Creatinine 0.91, Estim Creat Clear Calc 99.49, Est GFR (MDRD) Af Amer 111, Est GFR (MDRD) Non-Af 92, BUN/Creatinine Ratio 15.4, Glucose 144 H, Calcium 9.0, Total Bilirubin 0.80, AST 41 H, ALT 122 H, Alkaline Phosphatase 74, Total Protein 6.8, Albumin 2.9 L, Globulin 3.9, Albumin/Globulin Ratio 0.7 L 11/11/21 06:17: Hemoglobin A1c 7.6 H 11/11/21 06:41: POC Glucose 141 H 11/11/21 11:19: POC Glucose 179 H Microbiology: Microbiology 11/11/21 06:34 Urine, Clean Catch Streptococcus pneumoniae Antigen (M - Final 11/11/21 06:34 Urine, Clean Catch Legionella Antigen - Final Radiography Diagnostic Testing: Radiology Impression Chest X-Ray 11/10/21 22:13 IMPRESSION: Mild bilateral perihilar infiltrates Electronically Signed: Indra Corona MD at 22:58 EST , Service support , Chest CTA 11/10/21 22:55 IMPRESSION: Bilateral pulmonary emboli. No evidence of right ventricular strain. Right greater than left interstitial infiltrates. These are indeterminate for a covid 19 19. Electronically Signed: Indra Corona MD at 0:02 EST , Service support , D/C Instructions Discharge Diet: Low fat / Low cholesterol Discharge Activity: Return to Normal Activity Weight Bearing Status: Weight bearing as tolerated Call your doctor if you observe: Fever of 101 or Higher, Shortness of breath, Dizziness, Swelling in the ankles, Chest pain and Increased palpitations (irregular heartbeat) Meaningful Use Info Meaningful Use Diagnoses (Choose all that apply): VTE VTE Anticoag overlap given w/in hospital stay or rx'd at dc?: Yes Pt receive overlap for 5 days?: No Reason overlap not ordered, prescribed, or given for 5 days: Treatment Not Indicated Discharge Plan Admission Admit Date/Time: 11/11/21 00:26 Primary Reason for Your Visit: pulmonary embolism Attending Provider: Winter Lemus Primary Care Provider: Artur Jackman Instructions Patient Instructions: DVT/PE Discharge instruction sheet Discharge Orders/Prescriptions Prescriptions: New Yesikaquis DVT-PE Treat 30D Start 5 mg (74 tabs) tablets,dose pack 5 mg PO BID Qty: 74 RF: 1 Continued albuterol sulfate 90 mcg/actuation HFA aerosol inhaler INHALATION RF: 0 doxycycline hyclate 100 mg tablet RF: 0 Trulicity 0.75 mg/0.5 mL pen injector SUBCUT RF: 0 Referrals / Follow Up: Artur Jackman DO [Primary Care Provider] - Within 2 Weeks Disposition Disposition (needs filled in before D/C Order can be placed): Home, Self Care Charges/Coding Visit Charges OBSV E&M: 21453 Observation care discharge
== END 2021-11-11 13:29 | disposition home or self-care (01) ==
LOC: ED 22:45 → PCU 11-11 01:00
PROVIDERS: Admitting Provider Family Medicine; Emergency Provider Emergency Medicine; PCP Student in an Organized Health Care Education/Training Program; Visit Provider Student in an Organized Health Care Education/Training Program
DX: U07.1 COVID-19 (principal); I26.99 Other pulmonary embolism without acute cor pulmonale; E66.01 Morbid (severe) obesity due to excess calories; Z68.43 Body mass index [BMI] 50.0-59.9, adult; E11.9 Type 2 diabetes mellitus without complications; Z79.4 Long term (current) use of insulin; J12.82 Pneumonia due to coronavirus disease 2019; Z79.899 Other long term (current) drug therapy; Z23 Encounter for immunization; Z86.718 Personal history of other venous thrombosis and embolism; G47.33 Obstructive sleep apnea (adult) (pediatric)
CPT/HCPCS: 36415; 71045; 71275; 80048; 80053; 80076; 82728; 82962; 83036; 83615; 83880; 84145; 84484; 85025; 85379; 86140; 87449; 93005; 97802; 99218; 99251; 99285; Q9967; 90686; A4216; G0378; G0463

== ENCOUNTER 2021-11-13 10:13 | Emergency (ER) | payer OTHER, SELFPAY ==
[2021-11-13 10:13] VITALS: BP 149/91; PULSE 109; RESP 18; TEMP 36.1; O2SAT 95; BMI 51.5
[2021-11-13] MEDS: Oxymetazoline 0.05% 1 SPRAY SPRAY.BTL NASAL (11:44)
[2021-11-13] MEDS: Mixture 30 ML Bottle 5 ML TOPICAL (11:45)
--- NOTE | 2021-11-13 11:52 | EDS_ITS ---
HPI History of Present Illness Chief Complaint: Nosebleed Informant: patient Narrative Narrative: Patient is a 56-year-old male presenting with epistaxis. Patient has history of nosebleeds and recently had COVID-19 infection so therefore he started having increased nosebleeds. He was put on Xarelto for recent diagnosis of bilateral PEs and now is having worsening nosebleeds. He states his been bleeding for a couple hours and could not get to stop despite proper pressure so he came to the emergency room. He has seen Dr. Miller in the past and had cautery done but has not seen him recently. He has no other complaints at this time and states overall his breathing is improving and he is feeling better. Denies feeling lightheaded. Does wear a CPAP at night and his 1 machine is broken so he does not have that humidified oxygen. In addition he is having to use a nasal pillow instead of a full facemask. [facility] Medical History (Updated 11/13/21 @ 17:[address] Rukhsana Ochoa, DO) Anxiety and depression COVID-19 Diabetes mellitus, type 2 History of DVT of lower extremity Morbid obesity Obstructive sleep apnea Pneumonia Home Medications albuterol sulfate 1 puff INHALATION Q6H PRN PRN 11/11/21 [History Last Taken Unknown] doxycycline hyclate 100 mg PO BID 11/11/21 [History Last Taken Unknown] rivaroxaban [Xarelto DVT-PE Treat 30d Start] See Rx Instructions .ROUTE .COMPLEX #51 tab 11/11/21 [Rx Last Taken Unknown] Allergy/AdvReac Type Severity Reaction Status Date / Time cephalexin [From Keflex] Allergy Itching Verified 11/13/21 10:38 Family History Father Cancer Hx Lymphoma. Mother Diabetes Surgical History S/P arthroscopic surgery of right knee S/P tonsillectomy and adenoidectomy Social History household members: spouse Smoking Status: Never smoker alcohol intake: current alcohol intake frequency: a few times a month substance use type: does not use ROS ROS ED Constitutional Constitutional ED: Denies chills or fever(s) Eyes Eyes: Denies change in vision ENT ENT ED: Reports other Details: Epistaxis Cardiovascular Cardiovascular: Denies chest pain or palpitations Respiratory/Chest Respiratory/Chest: Denies cough, dyspnea, dyspnea on exertion or sputum Gastrointestinal Gastrointestinal: Denies abdominal pain or vomiting Musculoskeletal Musculoskeletal: Denies arthralgias or myalgias Integumentary Denies rash Neurologic Neurologic: Denies headache(s) or weakness Psychiatric Psychiatric: Denies depression EXAM Physical Exam Const Vital Signs: 11/13/21 10:13 11/13/21 13:18 Temperature 97.0 F L Temperature Source Temporal Pulse Rate 109 H 88 Respiratory Rate 18 18 Blood Pressure 149/91 H 148/80 H Blood Pressure Mean 110 102 Pulse Ox 95 96 Oxygen Delivery Method Room Air Room Air Positive well nourished, well developed and obese General Appearance ED: well developed; Negative for pallor Nutritional Appearance: obese HEENT Reports TM's clear, moist mucous membranes and other No active bleeding in the posterior pharynx. Patient does have bleeding from the nose. Patient has a large septal defect of his nose and the bleeding seems to be coming from the posterior septum at the base. Negative for trauma Tympanic Membrane ED: Yes TM's clear Eyes PERRL and EOMs intact bilaterally Neck supple Chest Wall inspection of chest normal Resp normal respiratory effort and clear to auscultation bilaterally Cardio regular rate, regular rhythm and no murmurs GI normal to inspection, nondistended, normoactive bowel sounds Neuro oriented x3 Sensorium / Orientation: alert Motor Exam: Negative for general weakness Psych mental status grossly normal Skin no rashes or lesions noted and no wounds General Skin Exam: Negative for pallor MDM MDM MDM Narrative Medical decision making narrative: Patient is evaluated for epistaxis. He has been having recurrent episodes since having COVID but its been worsened by being started on Xarelto. Bleeding is visualized to be coming from his nasal septum however it is atypical as he has a large septal defect and the bleeding is more in the middle of his nose at the base of the septum and not on septal wall. Discussed with Dr. Miller, ENT, who recommended cautery in this case and if that does not work to pack with half-inch by 72 inch Vaseline soaked gauze. Patient packed with cotton ball saturated with [place] solution x2. This stem to the bleeding. Afrin sprayed in the nose and then silver nitrate stick used to cauterize the area of bleeding. This was done twice. Patient had no further bleeding and was able to ambulate without any bleeding. Will not pack as the bleeding has stopped. Sleep lab was able to bring patient full mask and set up a nasal pillow for his BiPAP. He is counseled to use nasal saline to help with the dry mucosa of his nose. He will continue taking his Xarelto given his acute PEs. Patient will follow-up outpatient with ENT. He is counseled return precautions. He verbalized agreement understands plan. Discharged home in improved and stable condition. Discharge Plan Triage Chief Complaint: Nosebleed ED Provider: Rukhsana Ochoa Dx/Rx/DC Orders Clinical Impression: Anterior epistaxis, Current use of log operations coordinator anticoagulation Instructions: Nosebleed Prescriptions: No Action albuterol sulfate 90 mcg/actuation HFA aerosol inhaler 1 puff INHALATION Q6H PRN PRN (Reason: SOB) RF: 0 doxycycline hyclate 100 mg tablet 100 mg PO BID RF: 0 Xarelto DVT-PE Treat 30d Start 15 mg (42)- 20 mg (9) tablets,dose pack See Rx Instructions .ROUTE .COMPLEX Qty: 51 RF: 1 Primary Care Provider: Artur Jackman Referrals: Artur Jackman DO [Primary Care Provider] - Indra Rodriguez MD [STAFF PHYSICIAN] - 3-5 Days Activity Restrictions/Additional Instructions: Use humidified oxygen at night in her bedroom to help moisten your nose. Use nasal saline or [place] gel saline to keep the nose mucosa moist. Disposition Disposition: Home, Self Care Discharge Date/Time: 11/13/21 13:56
--- NOTE | 2021-11-13 12:19 | SLEEP ---
SLEEP LAB CONTACTED TO PROVIDE PT WITH FULL FACE MASK FOR HOME CPAP DEVICE D/T EPISTAXIS REQUIRING INTERVENTION, PT USES NASAL PILLOWS AT HOME. MASK AND HEADGEAR PROVIDED AND REVIEWED WITH PT AND SUPPORT PERSON. PT DAQUAN SHI ALSO CONTACTED
[2021-11-13] MEDS: Silver Nitrate (BKC) 1 EACH TOPICAL (13:17)
[2021-11-13 13:18] VITALS: BP 148/80; PULSE 88; RESP 18; O2SAT 96
== END 2021-11-13 13:56 | disposition home or self-care (01) ==
PROVIDERS: Emergency Provider Emergency Medicine; PCP Student in an Organized Health Care Education/Training Program; Visit Provider Emergency Medicine
DX: R04.0 Epistaxis (principal); E66.01 Morbid (severe) obesity due to excess calories; Z68.43 Body mass index [BMI] 50.0-59.9, adult; E11.9 Type 2 diabetes mellitus without complications; Z79.01 Long term (current) use of anticoagulants; Z86.16 Personal history of COVID-19; Z86.718 Personal history of other venous thrombosis and embolism; G47.33 Obstructive sleep apnea (adult) (pediatric); Z87.01 Personal history of pneumonia (recurrent); Z86.711 Personal history of pulmonary embolism
CPT/HCPCS: 30901; 99282

== ENCOUNTER 2022-02-14 10:30 | Outpatient (RCR) | payer OTHER, SELFPAY | END 2022-02-23 23:59 | LOC: DC 10:30 | PROVIDERS: PCP Student in an Organized Health Care Education/Training Program; Referring Provider Nurse Practitioner Family; Visit Provider Nurse Practitioner Family | DX: E11.65 Type 2 diabetes mellitus with hyperglycemia (principal); E66.01 Morbid (severe) obesity due to excess calories; Z68.43 Body mass index [BMI] 50.0-59.9, adult | CPT/HCPCS: G0108 ==

== ENCOUNTER 2022-02-28 14:26 | Outpatient (RCR) | payer OTHER, SELFPAY | END 2022-03-26 23:59 | LOC: DC 14:26 | PROVIDERS: PCP Student in an Organized Health Care Education/Training Program; Referring Provider Nurse Practitioner Family; Visit Provider Nurse Practitioner Family | DX: E11.65 Type 2 diabetes mellitus with hyperglycemia (principal); E66.01 Morbid (severe) obesity due to excess calories; Z68.43 Body mass index [BMI] 50.0-59.9, adult | CPT/HCPCS: 97802 ==

== ENCOUNTER 2022-03-28 08:18 | Outpatient (RCR) | payer OTHER, SELFPAY | END 2022-04-25 23:59 | LOC: DC 08:18 | PROVIDERS: PCP Student in an Organized Health Care Education/Training Program; Referring Provider Nurse Practitioner Family; Visit Provider Nurse Practitioner Family | DX: E11.65 Type 2 diabetes mellitus with hyperglycemia (principal); E66.01 Morbid (severe) obesity due to excess calories; Z68.43 Body mass index [BMI] 50.0-59.9, adult | CPT/HCPCS: 97803 ==

== ENCOUNTER → 2023-01-15 | Outpatient (CLI) | payer OTHER, SELFPAY ==
--- NOTE | 2023-01-15 14:45 | CT_ITS ---
STUDY: CTA CHEST REASON FOR EXAM: Male, 57 years old. Increasing shortness of breath. History of prior pulmonary emboli. RADIATION DOSAGE (If Supplied By Facility): CTDIvol = ( 24.81 ) mGy, DLP = ( 822.64 ) mGycm TECHNIQUE: The examination was performed with the intravenous administration of IV 100mL Isovue-370. Post-processing of the angiographic images was performed, with multiplanar reformation and 3D reconstruction. Individualized dose optimization techniques were used for this CT. COMPARISON: None. FINDINGS: There are multiple bilateral pulmonary emboli involving both the branches of the right and left pulmonary artery in the upper and lower lobes. Thrombus is also seen in the interlobar pulmonary arteries bilaterally more prominent on the right side. Normal thoracic aorta and visualized great vessels. There is no demonstrated aortic dissection. Normal heart and pericardium. Normal mediastinum. Normal hilar regions. Normal visualized trachea and bronchi. The lungs are well expanded. Normal pulmonary parenchyma. Normal pleura. Normal chest wall structures. There are degenerative changes of thoracic spine. Small hiatal hernia. CT/CTA Chest W/WO Contrast IMPRESSION: Multiple bilateral pulmonary emboli worse on the right side. Electronically Signed: John Valerio MD at 15:39 EDT ,
[2023-01-15 15:15] LABS: CREATININE FINGERSTICK 1.4 mg/dL (0.70-1.30)
== END | disposition home or self-care (01) ==
PROVIDERS: PCP Student in an Organized Health Care Education/Training Program; Referring Provider Student in an Organized Health Care Education/Training Program; Visit Provider Student in an Organized Health Care Education/Training Program
DX: R06.02 Shortness of breath (principal); I26.99 Other pulmonary embolism without acute cor pulmonale; R05.8 Other specified cough
CPT/HCPCS: 36415; 71275; Q9967

== ENCOUNTER 2023-08-06 12:17 | Emergency (ER) | payer OTHER, SELFPAY ==
[2023-08-06 12:18] VITALS: BP 172/89; PULSE 83; RESP 14; TEMP 36.3; O2SAT 97; BMI 51.5
--- NOTE | 2023-08-06 13:09 | EX.ED.DYSGE1 ---
HPI History of Present Illness Chief Complaint: Flank Pain Informant: patient Onset/Context/Timing Onset: Yesterday Context: Sudden Onset Timing: Continuous Quality: Dull Location: Low back Worsened by: Nothing Relieved by: Nothing Narrative Narrative: Patient presents with back pain and chills that began last evening. Patient states he went to the urgent care today where they did blood work and noted that his kidney function tests were elevated. Patient was then referred to the emergency department for CT scan. Patient states this feels different from prior kidney stone pain. Patient describes the pain as dull. Patient states nothing makes it worse and nothing makes it better. Patient admits to chills but denies any fevers. Patient admits to some urinary frequency. Patient states he did note some hematuria at the urgent care today. Patient denies any abdominal pain. Patient denies any chest pain or shortness of breath. Patient denies any nausea or vomiting. [facility] Medical History Anxiety and depression Bilateral pulmonary embolism COVID-19 Diabetes mellitus, type 2 History of DVT of lower extremity Morbid obesity Obstructive sleep apnea Pneumonia Pneumonia due to COVID-19 virus Home Medications albuterol sulfate 90 mcg/actuation aerosol inhaler 1 puff inhalation Q6H PRN PRN SOB 11/11/21 [History Last Taken Unknown] rivaroxaban 15 mg (42)-20 mg (9) tablets in a starter pack (Xarelto DVT-PE Treatment 30-Day Starter) See Rx Instructions PO .COMPLEX #51 tabs 11/11/21 [Rx Last Taken Unknown] metformin 500 mg tablet 500 mg PO DAILY 08/06/23 [History Last Taken Unknown] semaglutide 2 mg/dose (8 mg/3 mL) subcutaneous pen injector (Ozempic) 2 mg subcut QWEEK 08/06/23 [History Last Taken Unknown] Allergy/AdvReac Type Severity Reaction Status Date / Time cephalexin [From Keflex] Allergy Itching Verified 08/06/23 12:20 BACTRIM Allergy Mild Itching Uncoded 08/06/23 12:20 Family History Father Cancer Hx Lymphoma. Mother Diabetes Surgical History S/P arthroscopic surgery of right knee S/P tonsillectomy and adenoidectomy Social History household members: spouse Smoking Status: Never smoker alcohol intake: current alcohol intake frequency: a few times a month substance use type: does not use ROS ROS ED Constitutional Constitutional ED: Reports chills and subjective; Denies fever(s) Eyes Eyes: Denies blurry vision or change in vision ENT ENT ED: Denies rhinorrhea or sore throat Cardiovascular Cardiovascular: Denies chest pain or palpitations Respiratory/Chest Respiratory/Chest: Denies cough or dyspnea Gastrointestinal Gastrointestinal: Denies nausea or vomiting Genitourinary Genitourinary ED: Reports hematuria and urinary frequency; Denies dysuria Musculoskeletal Musculoskeletal: Reports back pain; Denies neck pain Integumentary Denies abscess or rash Neurologic Neurologic: Denies headache(s) or weakness Allergic/Immunologic Allergic/Immunologic ED: Denies mouth swelling or urticaria EXAM Physical Exam Const Vital Signs: 08/06/23 12:18 08/06/23 15:07 Temperature 97.3 F L Temperature Source Temporal Pulse Rate 83 73 Respiratory Rate 14 17 Blood Pressure 172/89 H 128/69 H Blood Pressure Mean 116 88 Pulse Ox 97 97 Oxygen Delivery Method Room Air Room Air Positive well nourished, well developed and obese General Appearance ED: well developed and NAD Nutritional Appearance: obese HEENT Reports moist mucous membranes Neck supple and no JVD Resp normal respiratory effort and clear to auscultation bilaterally Cardio regular rate and regular rhythm GI non-tender and non-distended Palpation: soft Back/Spine no CVA tenderness Extremity General Extremety ED: Negative for edema or tenderness General Extremity: Negative for edema Neuro oriented x3, CN's II-XII intact bilaterally and no sensory deficits noted Sensorium / Orientation: alert Motor Exam: strength 5/5 throughout Psych mental status grossly normal MDM MDM MDM Narrative Medical decision making narrative: Differential diagnosis includes acute kidney injury, dehydration, ureteral calculus, urinary tract infection, pyelonephritis, and viral illness. CT scan of the abdomen pelvis will be obtained to assess for ureteral calculus and bowel obstruction. Lab Data Attestation: I reviewed the patient's lab results. Lab results narrative: CBC was reviewed. There is a mild anemia with a hemoglobin of 11.7 and hematocrit 36.6. Basic metabolic profile from the urgent care at [facility] was reviewed. Creatinine was 2.16. Anion gap was normal. This was increased from previous creatinine of 1.56 on 04/15/2023. Urinalysis was reviewed. There are positive nitrites with a leukocyte esterase of 100. There are 25-50 red blood cells and 10-25 white blood cells. There is 2+ bacteria. Occult blood was 250. Labs: Laboratory Results - last 24 hr 08/06/23 13:40 WBC 9.0 RBC 4.11 L Hgb 11.7 L Hct 36.6 L MCV 89.1 MCH 28.5 MCHC 32.0 RDW Std Deviation 41.6 RDW Coeff of Aura 12.7 Plt Count 219 MPV 10.3 Immature Gran % (Auto) 0.400 Neut % (Auto) 77.0 H Lymph % (Auto) 9.9 L [place] % (Auto) 10.8 H Eos % (Auto) 1.3 Baso % (Auto) 0.6 Absolute Neuts (auto) 6.9 Absolute Lymphs (auto) 0.89 Nucleated RBC % 0 Urine Color Red Urine Clarity Sl. Cloudy Urine pH 5.0 Ur Specific [place] 1.015 Urine Protein 100 H Urine Glucose (UA) Normal Urine Ketones 5 H Urine Occult Blood 250 H Urine Nitrite Positive H Urine Bilirubin Negative Urine Urobilinogen Normal Ur Leukocyte Esterase 100 H Urine RBC 25-50 SEEN Urine WBC 10-25 SEEN Ur Squamous Epith Cells 0-5 SEEN Urine Bacteria 2+ Urine Mucus 0 SEEN Radiography Diagnostic Testing: Clinical Impression(s) from Imaging Studies Abdomen/Pelvis CT 08/06/23 15:19 IMPRESSION: 1. A 1 mm punctate calyceal stone is seen in the lower pole of the right kidney see image 93/204 series 2. No hydronephrosis is present. No large renal cysts are seen. Electronically Signed: Ysuef Jose MD at 15:58 EDT , CT scan of the abdomen pelvis was obtained. There is a 1 mm punctate calyceal stone in the lower pole of the right kidney. There is no hydronephrosis or obstruction noted. There is no free air or free fluid noted. There is no other acute abnormality noted. This was interpreted by the radiologist and was also independently reviewed by myself. EKG Initial EKG: Attestation: I personally reviewed and interpreted this EKG as follows: Interpretation: Sinus Rhythm (76) and No Acute Injury Pattern Comments: EKG was obtained. On my independent interpretation, shows normal sinus rhythm with a rate of 76. CT interval was normal at 160 ms, QRS several was normal at 94 ms, and QTc interval was normal at 375 ms. There is borderline left axis deviation at -13. There are no acute ST or T wave changes noted. Prior EKG tracings: available for review Prior: Unchanged (11/11/2021) Management Discussion w/another healthcare provider: PCP Additional Tests and Interventions Additional Tests or Interventions: Urine culture was obtained. Treatment and Re-Evaluation :: Patient was given IV fluids. Patient is feeling better on reevaluation. Patient was advised of his findings. Patient was given a dose of Cipro here. Patient states that the practitioner at the urgent care. Prescribed him a antibiotic for urinary tract infection. This report was reviewed and shows that it is Cipro 250 mg twice daily for 3 days. Patient was instructed to fill this antibiotic. Patient's primary care physician has been paged to discuss results with her. Currently, do not feel patient requires admission to the hospital. Patient is agreeable with this. Patient was instructed return if worse in any way. Patient instructed take Tylenol or ibuprofen as needed for any fevers. Patient was instructed to follow-up with his primary care physician in 5 to 7 days. Patient understood and was agreeable with the plan. All questions were answered. Discharge Plan Triage Chief Complaint: Flank Pain ED Provider: Yasmani Garcia Dx/Rx/DC Orders Clinical Impression: Urinary tract infection, Chronic kidney disease Instructions: ED Bladder Infection, Male (Adult) Prescriptions: No Action albuterol sulfate 90 mcg/actuation HFA aerosol inhaler 1 puff INHALATION Q6H PRN PRN (Reason: SOB) Xarelto DVT-PE Treat 30d Start 15 mg (42)- 20 mg (9) tablets,dose pack See Rx Instructions .ROUTE .COMPLEX Qty: 51 1RF Rx Instructions: Take one-15 mg tablet twice daily for 21 days, then one-20 mg tablet once daily; must take with meal/food metformin 500 mg tablet 500 mg PO DAILY Patient Comments: TAKE 1 TABLET BY MOUTH EVERY DAY WITH BREAKFAST Ozempic 2 mg/dose (8 mg/3 mL) pen injector 2 mg subcut QWEEK Primary Care Provider: Artur Jackman Referrals: Artur Jackman DO [Primary Care Provider] - 5-7 Days Disposition Disposition: Home, Self Care
--- NOTE | 2023-08-06 13:21 | EKG12_ITS ---
Test Reason : Blood Pressure : / mmHG Vent. Rate : 076 BPM Atrial Rate : 076 BPM P-R Int : 160 ms QRS Dur : 094 ms QT Int : 334 ms P-R-T Axes : 049 -13 027 degrees QTc Int : 375 ms Normal sinus rhythm Normal ECG Confirmed by VONDA PATINO, PJ ([id number]), non linear editor RYAN CHRISTENSEN ([id number]) on 08/11/2023 2:00:31 PM Referred By: Confirmed By:PJ FERRARI MD
[2023-08-06] MEDS: 0.9% Normal Saline (1000mL) 1,000 ML 1000 ML IV ×2 (13:42→16:39)
[2023-08-06 13:52] LABS: Mucous, Urine 0 SEEN /hpf (<or=2+)
[2023-08-06 13:55] LABS: Absolute Lymphocyte Count 0.89 X10^3/uL (0.83-4.51); Absolute Neutrophil Count 6.9 X10^3/uL (2.0-7.7); Basophil# 0.05 X10^3/uL; Basophil% 0.6 % (0-1); Eosinophil# 0.12 X10^3/uL; Eosinophils% 1.3 % (0-5); Hematocrit 36.6 % (40-54); Hemoglobin 11.7 g/dL (13.0-16.5); Lymphocyte # 0.89 X10^3/ul (0.83-4.51); Lymphocyte % 9.9 % (19-41); Mean Corpuscular Hgb 28.5 pg (27.0-32.0); Mean Corpuscular Volume 89.1 fL (80-94); Mean Platelet Vol. 10.3 fl (6.2-12.0); Monocyte# 0.97 X10^3/uL; Monocyte% 10.8 % (0-10); NRBC Flagged by Analyzer 0 % (0-5); Neutrophil # 6.88 X10^3/uL (2.7-7.7); Platelet Count 219 K/mm3 (150-450); RBC Distribution Width CV 12.7 % (11.6-14.6); RBC Distribution Width SD 41.6 fl (35.1-43.9); Red Blood Count 4.11 M/mm3 (4.6-6.2)
[2023-08-06 14:23] LABS: Color, Urine Red (Yellow); Glucose, Dipstick Normal (Normal); Ketone-Dipstick 5 mg/dl (Negative); Leukocyte Esterase-Dipstick 100 /ul (Negative); Nitrite-Dipstick Positive (Negative); Occult Blood-Urine 250 /ul (Negative); Protein-Dipstick 100 mg/dl (Negative); Specific Gravity, Urine 1.015 (1.002-1.030); Urine Bilirubin Dipstick Negative (Negative); Urine Clarity Sl. Cloudy (Clear); Urine Urobilinogen Normal (Normal)
[2023-08-06 14:33] LABS: Bacteria 2+ /hpf (None Seen); Red Blood Cells-Urine 25-50 SEEN /hpf (0-5); Squamous Epithelial Cells - UA 0-5 SEEN /hpf (0-5); White Blood Cells 10-25 SEEN /hpf (0-5)
[2023-08-06 15:07] VITALS: BP 128/69; PULSE 73; RESP 17; O2SAT 97
--- NOTE | 2023-08-06 15:19 | CT_ITS ---
STUDY: CT ABDOMEN AND PELVIS WITHOUT CONTRAST REASON FOR EXAM: Male, 58 years old. BACK PAIN, CHILLS, HX KS, HEMATURIA RADIATION DOSAGE (If Supplied By Facility): CTDIvol = ( 24.18 ) mGy, DLP = ( 1347.10 ) mGycm TECHNIQUE: Transaxial images were obtained from the dome of the diaphragm to the symphysis pubis without oral contrast, and without intravenous contrast. Sagittal and coronal images were reconstructed. Individualized dose optimization techniques were used for this CT. COMPARISON: None. FINDINGS: The visualized lung bases are unremarkable. The visualized portions of the heart are within normal limits. There is decreased attenuation of the liver consistent with steatosis. Normal gallbladder and extrahepatic biliary system. Normal spleen. Normal pancreas. Normal bilateral adrenal glands. Normal right kidney. Normal left kidney. A 1 mm punctate calyceal stone is seen in the lower pole of the right kidney see image 93/204 series 2. No hydronephrosis is present. No large renal cysts are seen. There is a small hiatal hernia. Normal small intestine. Normal colon. There is non-visualization of the appendix. Normal abdominal aorta. Normal inferior vena cava. Normal retroperitoneum. Normal urinary bladder. There are prostatic calcifications. There is a small umbilical hernia containing fat. Small fat-containing left inguinal hernia noted. There are diffuse degenerative changes of the visualized lumbar spine. CT/Abdomen/Pelvis without Cont IMPRESSION: 1. A 1 mm punctate calyceal stone is seen in the lower pole of the right kidney see image 93/204 series 2. No hydronephrosis is present. No large renal cysts are seen. Electronically Signed: Yusef Jose MD at 15:58 EDT Reading Location ID and State: [facility] / [place] , Service support ,
[2023-08-06] MEDS: Ciprofloxacin 500 MG Tablet PO (16:39)
[2023-08-06 16:42] VITALS: BP 127/75; PULSE 70; RESP 16; O2SAT 97
== END 2023-08-06 17:42 | disposition home or self-care (01) ==
PROVIDERS: Emergency Provider Emergency Medicine; PCP Student in an Organized Health Care Education/Training Program; Visit Provider Emergency Medicine
DX: N39.0 Urinary tract infection, site not specified (principal); E11.22 Type 2 diabetes mellitus with diabetic chronic kidney disease; N18.9 Chronic kidney disease, unspecified; G47.33 Obstructive sleep apnea (adult) (pediatric); E66.9 Obesity, unspecified; Z79.84 Long term (current) use of oral hypoglycemic drugs; Z79.01 Long term (current) use of anticoagulants; Z86.16 Personal history of COVID-19; Z86.718 Personal history of other venous thrombosis and embolism
CPT/HCPCS: 74176; 81001; 85025; 87086; 93005; 96360; 96361; 99283; J7030; A4216

== ENCOUNTER 2024-12-01 10:26 | Emergency (ER) | payer OTHER, SELFPAY ==
[2024-12-01 10:27] VITALS: BP 159/81; PULSE 119; RESP 16; TEMP 36.2; O2SAT 100
[2024-12-01] MEDS: Oxymetazoline 0.05% 1 SPRAY SPRAY.BTL NASAL (11:16)
--- NOTE | 2024-12-01 11:16 | EX.ED.DYSGE1 ---
HPI History of Present Illness Chief Complaint: Nosebleed Informant: patient and spouse/S.O. Narrative Narrative: Who presents sudden epistaxis while working. He states he is blowing his nose when started. He is on Xarelto history of PE diagnosed 3 years ago after COVID. He had nosebleed a year ago seen in the ED controlled with medications. Unable control of bleeding therefore came here. Unclear which side this started. Patient does wear CPAP at night for sleep apnea. Prior similar symptoms: Yes PFSH PFSH Medical History Pneumonia COVID-19 Diabetes mellitus, type 2 Anxiety and depression Morbid obesity Pneumonia due to COVID-19 virus Bilateral pulmonary embolism Obstructive sleep apnea History of DVT of lower extremity Home Medications ?Medication ?Instructions ?Recorded ?Last Taken ?Type albuterol sulfate 90 mcg/actuation 1 puff inhalation Q6H PRN PRN SOB 11/11/21 Unknown History aerosol inhaler rivaroxaban 15 mg (42)-20 mg (9) See Rx Instructions PO .COMPLEX 11/11/21 Unknown Rx tablets in a starter pack (Xarelto #51 tabs DVT-PE Treatment 30-Day Starter) metformin 500 mg tablet 500 mg PO DAILY 08/06/23 Unknown History semaglutide 2 mg/dose (8 mg/3 mL) 2 mg subcut QWEEK 08/06/23 Unknown History subcutaneous pen injector (Ozempic) amoxicillin 875 mg-potassium 875 mg PO Q12H #10 TABLETS 12/01/24 Unknown Rx clavulanate 125 mg tablet Allergy/AdvReac Type Severity Reaction Status Date / Time cephalexin (From Keflex) Allergy Itching Verified 08/06/23 12:20 Iodinated Contrast Media AdvReac Intermediate Other Verified 12/01/24 12:18 (iodine contrast) BACTRIM Allergy Mild Itching Uncoded 08/06/23 12:20 Family History Father Cancer Hx Lymphoma. Mother Diabetes Surgical History S/P tonsillectomy and adenoidectomy S/P arthroscopic surgery of right knee Social History household members: spouse Smoking Status: Never smoker alcohol intake: current alcohol intake frequency: a few times a month substance use type: does not use ROS ROS ED Constitutional Constitutional ED: Denies chills, fever(s) or sweats ENT ENT ED: Reports other Details: Nosebleed ; Denies sore throat Cardiovascular Cardiovascular: Denies chest pain, leg edema, palpitations or racing heartbeat Respiratory/Chest Respiratory/Chest: Denies cough, dyspnea or dyspnea on exertion Gastrointestinal Gastrointestinal: Denies abdominal pain, diarrhea, nausea or vomiting Genitourinary Genitourinary ED: Denies dysuria, hematuria or urinary frequency Musculoskeletal Musculoskeletal: Denies back pain, extremity pain or neck pain Integumentary Denies rash or wounds Neurologic Neurologic: Denies headache(s), paresthesias or weakness EXAM Physical Exam Const Vital Signs: 12/01/24 10:27 12/01/24 14:00 12/01/24 15:00 Temperature 97.1 F L 98.1 F Temperature Source Temporal Pulse Rate 119 H 53 L 76 Respiratory Rate 16 15 Blood Pressure 159/81 H 138/72 H Blood Pressure Mean 107 94 Pulse Ox 100 100 96 Oxygen Delivery Method Room Air Positive well nourished and well developed General Appearance ED: well developed and NAD HEENT Reports moist mucous membranes HEENT Narrative: Clamp removed, patient allowed to blow his nose to remove clots. Evaluation each side, no clear bleeding source dried blood both naris. However seem little more on the right side. Septum was intact. normocephalic and atraumatic Eyes General Eye ED: Yes normal appearance of both eyes Neck full ROM Chest Wall Chest: Negative for tenderness Resp normal respiratory effort and normal air movement Effort and Inspection: symmetric chest movement; Negative for respiratory distress Cardio regular rate, regular rhythm and no murmurs Peripheral Pulses: pulses 2+ throughout GI normal to inspection, nondistended, normoactive bowel sounds and non-tender Palpation: Negative for guarding or rebound tenderness present Extremity normal to inspection General Extremety ED: Negative for edema or tenderness General Extremity: Negative for edema Neuro oriented x3 and no sensory deficits noted Sensorium / Orientation: awake and alert Skin no rashes or lesions noted and no wounds MDM MDM MDM Narrative Medical decision making narrative: Interventions / MDM: Differential diagnosis: Right side epistaxis, chronic anticoagulation Diagnosis considered but do not suspect: N/A My EKG interpretation: Sinus rate of 53, no ST changes. PAC noted. QTc 380. Imaging independently reviewed and interpreted by myself: N/A External documents reviewed: N/A Test considered but not ordered:N/A ED course: Epistaxis on Xarelto. Seen more in the right side. After clots expelled, there is dried blood in both sides, Afrin on cotton placed on both sides at 1115. Will monitor and reevaluate. 1125: Return to evaluate patient still blood coming from the nares and spitting out blood. The cotton balls were removed, there is more clots on the right side, I placed a 7.5 cm rapid Rhino. Will check lab work and coags will monitor. 1150: Very minimal bleeding anterior nare at this time he states occasional spitting up blood. He feels getting better. Will continue to monitor. No blood coming from the left side. 1205: Patient still states he having to spit up blood. Still minimal bleeding however not significant. I will discuss with ENT as he is on Xarelto with bleeding not fully controlled at this time. 1217: I spoke with ENT Dr. Rodriguez, discussed patient's history and findings. Discussed ongoing symptoms. He will come evaluate the patient in the ED. 1220: I reevaluated the patient after speaking with Dr. Rodriguez, apparently bleeding is stopped he is not spitting up blood at this time. He states is normal saliva. Will continue to monitor this time. Creatinine returned at 2.24, 3 years ago was normal range. Potassium 5.4. I will give him IV fluids. I will reevaluate. 1225: I did discuss with patient and spouse he has recently known CKD. His recent GFR was 36. He is followed by [facility] nephrology. Current GFR is 32. He states GFR was as low as 26 previously. He is currently on steroids tapering due to renal biopsy noting inflammatory changes. His white count 13 likely from the steroid therapy. 1440: No rebleeding. Recheck of his potassium went up to 5.6. No EKG changes because of CKD. He would like to go home is asymptomatic. Ordered for Kayexalate reminding of his potassium. Also started on Augmentin with his cephalexin allergy due to nasal packing which was taken for 5 days before his appointment which was made for Friday. He will hold his Xarelto. Return precaution discussed with the patient. Questions were answered. Re-evaluation: stable Disposition discussed with patient/family/significant other: Patient and spouse Case discussed with consulting clinician: N/A This note was generated with [employer] dictation software. It may contain incorrect words, spelling, and punctuation that were not noted in checking the note before signing. Lab Data Attestation: I reviewed the patient's lab results. Labs: Laboratory Results - last 24 hr 12/01/24 12/01/24 11:59 14:06 WBC 13.1 H RBC 3.96 L Hgb 11.3 L Hct 35.5 L MCV 89.6 MCH 28.5 MCHC 31.8 L RDW Std Deviation 45.0 H RDW Coeff of Aura 13.7 Plt Count 210 MPV 10.6 Immature Gran % (Auto) 0.400 Neut % (Auto) 83.5 H Lymph % (Auto) 8.2 L Mingo % (Auto) 5.1 Eos % (Auto) 2.5 Baso % (Auto) 0.3 Absolute Neuts (auto) 10.9 H Absolute Lymphs (auto) 1.07 Nucleated RBC % 0 PT 20.8 H INR 1.7 APTT 32.4 Sodium 138 Potassium 5.4 H 5.6 H Chloride 107 Carbon Dioxide 26.0 Anion Gap 5 BUN 41 H Creatinine 2.24 H Est GFR (MDRD) Af Amer 39 L Est GFR (MDRD) Non-Af 32 L BUN/Creatinine Ratio 18.3 Glucose 132 H Calcium 9.3 Discharge Plan Triage Chief Complaint: Nosebleed ED Provider: Zbigniew Santiago Dx/Rx/DC Orders Clinical Impression: Right-sided nosebleed, CKD (chronic kidney disease) stage 3, GFR 30-59 ml/min, Hyperkalemia Instructions: Nosebleed, CKD Dc, Hyperkalemia Dc Prescriptions: New amoxicillin-pot clavulanate 875-125 mg tablet 875 mg PO Q12H Qty: 10 0RF No Action albuterol sulfate 90 mcg/actuation HFA aerosol inhaler 1 puff INHALATION Q6H PRN PRN (Reason: SOB) Xarelto DVT-PE Treat 30d Start 15 mg (42)- 20 mg (9) tablets,dose pack See Rx Instructions .ROUTE .COMPLEX Qty: 51 1RF Rx Instructions: Take one-15 mg tablet twice daily for 21 days, then one-20 mg tablet once daily; must take with meal/food metformin 500 mg tablet 500 mg PO DAILY Patient Comments: TAKE 1 TABLET BY MOUTH EVERY DAY WITH BREAKFAST Ozempic 2 mg/dose (8 mg/3 mL) pen injector 2 mg subcut QWEEK Primary Care Provider: Artur Jackman Referrals: Artur Jackman DO [Primary Care Provider] - Indra Rodriguez MD [Med Staff - Active Staff] - Keep Renato appointment Activity Restrictions/Additional Instructions: 7.5 cm Rhino packing placed in the right nare. Take antibiotic as prescribed to prevent infections. Hold your Xarelto at this time. Keep your follow-up with Dr. Miller as scheduled on Friday. Your creatinine is 2.24 with GFR of 32 today. You are given a liter of fluids. You have a history of stage III CKD. Your potassium elevated 2.4-2.6 status post Kayexalate. There is no EKG changes. Continue oral fluids. Develop racing heart, lightheaded symptoms or passing out, return immediately to the ED. Follow-up with your kidney doctor or your PCP to recheck your labs. Print Language: Zimbabwean Disposition Disposition: Home, Self Care Discharge Date/Time: 12/01/24 15:01
[2024-12-01 12:11] LABS: Absolute Lymphocyte Count 1.07 X10^3/uL (0.83-4.51); Absolute Neutrophil Count 10.9 X10^3/uL (2.0-7.7); Basophil# 0.04 X10^3/uL; Basophil% 0.3 % (0-1); Eosinophil# 0.33 X10^3/uL; Eosinophils% 2.5 % (0-5); Hematocrit 35.5 % (40-54); Hemoglobin 11.3 g/dL (13.0-16.5); Lymphocyte # 1.07 X10^3/ul (0.83-4.51); Lymphocyte % 8.2 % (19-41); Mean Corp Hgb Conc 31.8 g/dL (32-36); Mean Corpuscular Hgb 28.5 pg (27.0-32.0); Mean Corpuscular Volume 89.6 fL (80-94); Mean Platelet Vol. 10.6 fl (6.2-12.0); Monocyte# 0.67 X10^3/uL; Monocyte% 5.1 % (0-10); NRBC Flagged by Analyzer 0 % (0-5); Neutrophil # 10.91 X10^3/uL (2.7-7.7); Neutrophil % 83.5 % (47-70); Platelet Count 210 K/mm3 (150-450); RBC Distribution Width CV 13.7 % (11.6-14.6); Red Blood Count 3.96 M/mm3 (4.6-6.2); White Blood Count 13.1 K/mm3 (4.4-11.0)
[2024-12-01 12:20] LABS: International Normalized Ratio 1.7; Prothrombin Time (Protime)PT. 20.8 SECONDS (11.7-14.9)
[2024-12-01 12:21] LABS: Partial Thromboplast Time 32.4 Seconds (24.1-36.2)
[2024-12-01 12:25] LABS: Anion Gap 5 (5-15); BUN 41 mg/dL (7-18); BUN/Creat Ratio 18.3 RATIO (10-20); Calcium,Total 9.3 mg/dL (8.5-10.1); Chloride 107 mmol/L (98-107); Creatinine, Serum 2.24 mg/dL (0.70-1.30); EST Glomerular Filtration Rate 32 mL/min (>60); Est Glom Filt Rate - Afr Amer 39 mL/min (>60); Glucose 132 mg/dL (74-106); Potassium 5.4 mmol/L (3.5-5.1); Sodium Level 138 mmol/L (136-145)
--- NOTE | 2024-12-01 12:32 | EKG12_ITS ---
Test Reason : ARRYTHMIA Blood Pressure : */* mmHG Vent. Rate : 53 BPM Atrial Rate : 53 BPM P-R Int : 162 ms QRS Dur : 92 ms QT Int : 406 ms P-R-T Axes : 29 -2 18 degrees QTcB Int : 380 ms Sinus bradycardia with Premature atrial complexes Minimal voltage criteria for LVH, may be normal variant ( R in aVL ) Borderline ECG Confirmed by VONDA PATINO, PJ ([id number]), supervising editor trailer CHUCKIE BRAUN ([id number]) on 12/02/2024 6:56:18 AM Referred By: Confirmed By: PJ FERRARI MD
[2024-12-01] MEDS: 0.9% Normal Saline (1000mL) 1,000 ML 999 ML IV (12:43)
[2024-12-01 14:00] VITALS: PULSE 53; O2SAT 100
[2024-12-01 14:19] LABS: Potassium 5.6 mmol/L (3.5-5.1)
[2024-12-01] MEDS: Amox/Clavulanate 875 MG Tablet PO (14:59)
[2024-12-01] MEDS: Sodium Polystyrene Sulfonate 15 GM/60 ML UDC 30 GM PO (14:59)
[2024-12-01 15:00] VITALS: BP 138/72; PULSE 76; RESP 15; TEMP 36.7; O2SAT 96
== END 2024-12-01 15:01 | disposition home or self-care (01) ==
PROVIDERS: Emergency Provider Emergency Medicine; PCP Student in an Organized Health Care Education/Training Program; Visit Provider Emergency Medicine
DX: R04.0 Epistaxis (principal); E66.01 Morbid (severe) obesity due to excess calories; E11.22 Type 2 diabetes mellitus with diabetic chronic kidney disease; N18.30 Chronic kidney disease, stage 3 unspecified; E87.5 Hyperkalemia; I49.1 Atrial premature depolarization; G47.33 Obstructive sleep apnea (adult) (pediatric); Z88.1 Allergy status to other antibiotic agents; Z79.01 Long term (current) use of anticoagulants; Z86.711 Personal history of pulmonary embolism; Z79.84 Long term (current) use of oral hypoglycemic drugs; Z79.85 Long-term (current) use of injectable non-insulin antidiabetic drugs; Z86.718 Personal history of other venous thrombosis and embolism
CPT/HCPCS: 30905; 30901; 80048; 84132; 85025; 85610; 85730; 93005; 96360; 96361; 99283; A4216

== ENCOUNTER 2025-10-25 09:30 | Outpatient (RCR) | payer OTHER, SELFPAY ==
--- NOTE | 2025-08-22 08:46 | HP.PTEVAL ---
Patient's Visit Information Visit Information Visit Information: EJ MEJIA is a 60 year old M referred to Physical Therapy by Dr. 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 Date of Evaluation: 08/22/25 Physical Therapist: Yasmani Nagel, DPT, OCS, CSCS Visit Plan Frequency: 3x /Week Duration: 4-6 Weeks Plan: 3x/weeek for 4-6 weeks for IE HEP AP and GS throughout day, QS,SLR, HS 3x/day 8-10, heel toe walking pattern all reviewed, use ice machine at rest and REST with frequent short walks. Treat with patellar mobs and R knee ROM, mat strength to standing strength as tolerated, gait training, stair training. ice as needed(has home ice machine) funcitonal progression, rollout and sTM to quads, HS and calf with streetching. Subjective Subjective: R TKA Dr. Flores 08/18 4 days ago. Pain for 31 yrs since basketball injury 30 yrs ago and was bone on bone. Using wh walker now but not prior, was still working at [employer] prior to surgery. Swam at [employer] prior to surgery. HEP: ankle chickaloon and pumps, quad set, GS, HS, SLR unable. 1-2 x per day, often on ap. Needs help dressing with socks. , bathroom self. Shower with lip I. Stairs 3 with 2 railins, N oproblem. Using L leg. Sleep is good last night. Pain R knee: Pain Intensity (Out of 10): 0 Pain Intensity Range: 0 and 6 Objective Objective: Walks with wh wwalkeer mod I, slow with poo0r knee movement R but mod I 200 feet to eval. Trasnfer chair with UE and R knee straight I, Bed trasnfer requires R LE assist min in and out of table. R knee AROM -2 to 55, L knee 0-115. Patella moving decent on R but stiff compared to L. Incision is dressed appropriately anterior and appears dry. No signs of excessive redness heat or swelling today, pt has and is using ice machine at home. Hips AROM to 0 ext, 90 flexion B, overweigth is limitation. AP normal B with good AROM. bruising present R calf, - homans. strength R knee NT due to pain, L knee 5/5, hip is 3- R hip flexion and 4 L, abductiona dn ext 3. ankle streentgth 5 L and 4+ R. Unabnle to SLR R today without Min A, has pain with any movement of R knee but comfortable at rest. Balance/Special Test Scores WOMAC Total Score: 62 WOMAC Percentatge: 35.4200 Goals Goal 1:: sleep without waking due to pain. Goal Time Frame: 2-4 Weeks Goal 2:: walk without gait deviations and transfer chair in normal manner without pain Goal Time Frame: 4-6 Weeks Goal 3:: community ambulation with good balance without AD Goal Time Frame: 4-6 Weeks Goal 4:: up and down steps with one rail I Goal Time Frame: 4-6 Weeks Goal 5:: I appropriate HEP to limit future problems. Goal Time Frame: 4-6 Weeks Goal 6:: WOMAC score 10 or less Goal Time Frame: 4-6 Weeks Rehabilitation Potential Physical Therapy Diagnosis: R leg stiff and weeak after recent surgical intevention limiting funciton. Rehabilitation Potential: Good Anticipated Interventions Patient/Client Instruction: Educate patient on: Condition and Plan of Care For the Purpose of:: To decrease pain, To increase ROM, To improve nutrient delivery to tissue, To improve muscle performance and motor function, To increase tolerance to activity/condition/position and To improve gait and locomotor functions Therapeutic Exercise to Include: Strength training, Postural training, Flexibilty training, Gait and locomotor training, Relaxation training, Passive ROM and Active ROM For the Purpose of:: To decrease pain, To increase ROM, To improve nutrient delivery to tissue, To improve muscle performance and motor function, To increase tolerance to activity/condition/position, To improve ability of physical actions for home/community/work/leisure and To improve gait and locomotor functions Manual Therapy Techniques to Include: Passive ROM and Soft tissue mobilization For the Purpose of:: To decrease pain, To increase ROM and To improve nutrient delivery to tissue Cryotherapy (ice pack, ice massage): Yes For the Purpose of:: To decrease pain and To decrease swelling/inflammation Text: Thank you for the opportunity to evaluate your patient. For Medicare and Medicare HMO plans, please review the plan of care and approve it. It will need to be FAXED BACK to us at [phone] for Medicare purposes. For Medicare only, by signing this I certify the plan of care. Please let me know if there are questions or concerns regarding this plan of care. Physician Signature: Date:
--- NOTE | 2025-10-06 16:31 | HP.PTREVAL ---
Re-Evaluation Intro: Dr. 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 Please see the progress note below for an update on the physical therapy plan of care! Subjective Subjective: Pain 0/10 at rest. Someitmes 3/10 if twists wrong. Sleep is OK. Activitis at home normal and has beeen working. Can't stand for longr than 2-3 batches of popcorn or 2-3 hrs. Basic ADLs all I. Cannot gt socks on. Steps are OK. \ I will be diligeent in pool at [facility], [place]. Objective Objective/Function: 0-110 AROM with slight stretch pain end range of R flexion, hsitant to rotate. Walking without antalgia biut stiffness presnt R knee with marching. Plan Plan Plan: f/u 3 weeks with PT Please chck ROM to ensure past 110, walking still without antalgia, steps lss painful, driving movemnt and pivotting going better as these will b e the goals for him to work toward with his HEP above. He is to call prior if worseens and will d/c next visit or set new POC if needed. This POC is extended 4 weeks to work toward abov mentioned goals with fair prognosis. Balance/Gait/Functional tests Balance/Special Test Scores WOMAC Total Score: 29 WOMAC Percentage: 69.8000 Goals Goals Goal 1:: sleep without waking due to pain. Goal Time Frame: 2-4 Weeks Goal Progress: Goal Met Goal 2:: walk without gait deviations and transfer chair in normal manner without pain Goal Time Frame: 4-6 Weeks Goal Progress: Goal Met Goal 3:: community ambulation with good balance without AD Goal Time Frame: 4-6 Weeks Goal Progress: Goal Met Goal 4:: up and down steps with one rail I Goal Time Frame: 4-6 Weeks Goal Progress: Goal Met Goal 5:: I appropriate HEP to limit future problems. Goal Time Frame: 4-6 Weeks Goal Progress: Goal Met Goal 6:: WOMAC score 10 or less Goal Time Frame: 4-6 Weeks Goal Progress: progressing, approp Anticipated Interventions Anticipated Interventions Patient/Client Instruction: Educate patient on: Condition and Plan of Care For the Purpose of:: To decrease pain, To increase ROM, To improve nutrient delivery to tissue, To improve muscle performance and motor function, To increase tolerance to activity/condition/position and To improve gait and locomotor functions Therapeutic Exercise to Include: Strength training, Postural training, Flexibilty training, Gait and locomotor training, Relaxation training, Passive ROM and Active ROM For the Purpose of:: To decrease pain, To increase ROM, To improve nutrient delivery to tissue, To improve muscle performance and motor function, To increase tolerance to activity/condition/position, To improve ability of physical actions for home/community/work/leisure and To improve gait and locomotor functions Manual Therapy Techniques to Include: Passive ROM and Soft tissue mobilization For the Purpose of:: To decrease pain, To increase ROM and To improve nutrient delivery to tissue Cryotherapy (ice pack, ice massage): Yes For the Purpose of:: To decrease pain and To decrease swelling/inflammation Re-Evaluation Ending Re-evaluation ending: Please do not hesitate to contact me at [phone] by phone or if you have questions or concerns regarding this new plan of care! Sincerely, aYsmani Nagel, DPT, OCS, CSCS
--- NOTE | 2025-10-25 11:17 | HP.PTDCSUM ---
Discharge Summary D/C summary: It has been my pleasure to treat CARLOS MEJIA referred by Dr. 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 Discharge Date: Please see the following information for a summary of their discharge status. Subjective Subjective: Pt. is here today for his re check. pt. had been doing his exercises at local pool. Pt. reports being 80% better overall. Pt. reports doing compliant with all of his exercises. Pt. saw physician whom was pleased with his ROM and progress. Pain R knee: Pain Intensity (Out of 10): 0 Overall Improvement % Improvement: 80 Objective Objective/Function: ROM: R knee: PROM 0-0-112deg, AROM: 0-0-110. MMT: LLE: knee: ext 72.4#, flex 54.6# RLE: knee: ext 49.9#, flexion 52.5# STAIRS: Pt. able to ascend and descend without increase in symptoms. Pt. does have marked R quad weakness as seen in descending and ascending during R loading phases, but able to complete with use of 1 HR. Overall Carlos is doing well. He is maintaining his knee flexion ROM and his strength in is quad is 69% from side to side. He is walking well without much pain, but does have limited knee ext during stance phase, but did progress with VCing. Pt. did maintain his 110deg flexion. He does have some knee ext strength loss, but not much. I talked to him about continued pool exercises and add in strengthening exercises. Pt. agrees to this plan. pt. to be DC from PT this date. Goals Goal 1:: sleep without waking due to pain. Goal Progress: Goal Met Goal 2:: walk without gait deviations and transfer chair in normal manner without pain Goal Progress: Goal Met Goal 3:: community ambulation with good balance without AD Goal Progress: Goal Met Goal 4:: up and down steps with one rail I Goal Progress: Goal Met Goal 5:: I appropriate HEP to limit future problems. Goal Progress: Goal Met Goal 6:: WOMAC score 10 or less Goal Progress: progressing, approp Plan Plan: Pt. to be DC from PT this date. Pt. to continue with pool exercises and add in quad strengthening in pool. He is to continue with biking and slowly add in resistance to increase quad strengthening. Pt. consents. D/C Information d/c sentence: If there are questions or concerns regarding this patient's physical therapy, please feel free to call me at [phone]. Thank you for the referral of this patient. Sincerely, Denis Schreiber Sipos, DPT Balance/Gait/Functional tests Balance/Special Test Scores Lower Extremity Functional Score: 47 WOMAC Total Score: 29 WOMAC Percentage: 69.8000 Improvement % Improvement: 80
== END 2025-10-25 19:00 | disposition home or self-care (01) ==
LOC: PT 09:30
PROVIDERS: PCP Student in an Organized Health Care Education/Training Program; Referring Provider Orthopaedic Surgery; Visit Provider Orthopaedic Surgery
DX: M17.11 Unilateral primary osteoarthritis, right knee (principal)
CPT/HCPCS: 97110; 97140; 97161; 97164; 97530